=== PATIENT | female | born 1960 | race Caucasian/White ===

== ENCOUNTER → 2016-04-22 | Outpatient (CLI) | payer MEDICARE ==
[~2016-04-22] MED LIST: ASPI81TA4 PO; CELE20TA PO; DOCQ100C PO; EPIP0.3I2 IJ; FOLI1TAB2 PO; FOLI1TAB86 PO; GABA600T PO; HYDR-3716 PO; IMIT5SPR; LEVO125T3 PO; LORA10TA2 PO; MOME50SP; NIAC1TAB5 PO; OMEP40CA2 PO; PARO20TA2 PO; POLY33502 PO; PRAM0.123 PO; PRAV80TA2 PO; SUMA100T2 PO; TIZA4TAB3 PO; VICO5TAB16 PO; VITA100037 PO; VITA100072 PO; ZETI10TA2 PO; [UNRECOGNIZED DRUG - OTHER]
[2016-04-22 14:13] LABS: CONTROL LINE HCG INT CTR LINE PRESENT
[2016-04-22 14:28] LABS: FOLLICLE STIMULATING HORMONE 57.7 mIU/mL; LUTEINIZING HORMONE 29.3 mIU/mL
== END ==
LOC: M SMT 11:41
PROVIDERS: ATTEND Advanced Practice Midwife
DX: N95.0 Postmenopausal bleeding (principal)

== ENCOUNTER → 2016-04-24 | Outpatient (CLI) | payer MEDICARE ==
--- NOTE | 2016-04-25 05:06 | REP ---
Clinical: Postmenopausal bleeding . Technique: Transabdominal pelvic ultrasound followed by transvaginal examination for better evaluation of the endometrium and adnexa with color Doppler evaluation of the ovaries. Findings: Bladder is under distended and unremarkable and measures 3.1 x 2.7 x 0.9 cm (<5 ml) . Heterogeneous anteverted myomatous uterus measures 5.9 x 2.5 x 3.9 cm and includes posterior fibroid measuring 1.3 cm maximal diameter and anterior fibroid measuring 1 cm maximal diameter. The endometrial complex measures roughly 7.5 mm thickness but is difficult to completely evaluate due to uterine heterogeneity. No endometrial abnormalities are appreciated. The right ovary is normal in appearance and vascularity without evidence for torsion, and measures 2.4 x 1.3 x 1.9 cm ; R I = 0.68. Left ovary is not identified. No pelvic fluid or adnexal mass lesion . Impression: 1. heterogeneous anteverted uterus with two small intramural fibroids. The endometrial complex appears to measure up to 7.5 mm thickness but is difficult to completely evaluate due to surrounding heterogeneity. No discrete endometrial abnormality or fluid is appreciated. II. Normal right ovary; left ovary not visualized. Signed by Juan David Manzano MD 04/25/2016 04:57 A
== END ==
LOC: M SMT 12:49
PROVIDERS: ATTEND Advanced Practice Midwife
DX: N95.0 Postmenopausal bleeding (principal)

== ENCOUNTER → 2016-05-08 | Outpatient (REF) | payer MEDICARE, MEDICAID | LOC: M LAB REF 11:00 | PROVIDERS: ATTEND Advanced Practice Midwife | DX: N95.0 Postmenopausal bleeding (principal) ==

== ENCOUNTER → 2016-05-27 | Outpatient (CLI) | payer MEDICARE ==
[2016-05-27 09:44] LABS: BASO % 0.6 % (0.0-1.0); EOS # 0.1 K/mm3 (0.0-0.50); EOS % 2.2 % (0.0-3.0); LYMPH # 2.4 K/mm3 (1.5-4.5); LYMPH % 39.8 % (24.0-44.0); MEAN CORPUSCULAR HEMOGLOBIN 31.4 pg (27.0-33.0); MEAN CORPUSCULAR HGB CONC 33.9 g/dl (32.0-36.5); MEAN CORPUSCULAR VOLUME 92.8 fl (80.0-96.0); MONO # 0.2 K/mm3 (0.0-0.8); MONO % 3.7 % (0.0-5.0); NEUTROPHILS # 3.1 K/mm3 (1.8-7.7); NEUTROPHILS % 51.3 % (36.0-66.0); RED CELL DISTRIBUTION WIDTH 13.7 % (11.5-14.5); WHITE BLOOD COUNT 5.9 K/mm3 (4.0-10.0)
[2016-05-27 10:15] LABS: ALBUMIN 3.5 GM/DL (3.2-5.2); ALBUMIN/GLOBULIN RATIO 1.06 (1.00-1.93); ALKALINE PHOSPHATASE 94 U/L (45-117); ALT/SGPT 21 U/L (12-78); ANION GAP 8 MEQ/L (8-16); AST/SGOT 18 U/L (15-37); BILIRUBIN,TOTAL 0.7 MG/DL (0.2-1.0); BLOOD UREA NITROGEN 7 MG/DL (7-18); CALCIUM LEVEL 8.1 MG/DL (8.5-10.1); CARBON DIOXIDE LEVEL 29 MEQ/L (21-32); CHLORIDE LEVEL 105 MEQ/L (98-107); CHOLESTEROL LEVEL 83 MG/DL (<200); CREATININE FOR GFR 0.71 MG/DL (0.55-1.02); FERRITIN 59 NG/ML (8-252); FREE T4 0.95 NG/DL (0.76-1.46); GLOMERULAR FILTRATION RATE > 60.0 (>51); GLUCOSE, FASTING 101 MG/DL (70-105); POTASSIUM SERUM 3.6 MEQ/L (3.5-5.1); SODIUM LEVEL 142 MEQ/L (136-145); TOTAL PROTEIN 6.8 GM/DL (6.4-8.2); TRIGLYCERIDES LEVEL 69 MG/DL (<150)
[2016-05-27 16:47] LABS: VITAMIN B12 LEVEL 708 PG/ML (247-911)
[2016-05-27 16:48] LABS: FOLATE 20.7 NG/ML (>5.4)
[2016-05-29 00:07] LABS: CK TOTAL 96 U/L (24-173)
== END ==
LOC: M LAB 08:03
PROVIDERS: ATTEND Family Medicine
DX: E78.5 Hyperlipidemia, unspecified (principal); D50.9 Iron deficiency anemia, unspecified

== ENCOUNTER → 2016-06-13 | Outpatient (CLI) | payer MEDICARE ==
[~2016-06-13] VITALS: Ht 164.5 cm; Wt 92.5 kg
[~2016-06-13] MED LIST changes: +ASPI1TAB PO; +ATOR1TAB18 PO; +BACL10TA PO; +CLAR10CA3 PO; +ESTR625TA PO; +LIDOCAINE 2% INJ 100 MG/5 ML SDV (FOR ANES.) As Ordered ONE; +MONT10TA2 PO; +NIACCAP PO; +NS 1,000 ML IV SCH; +PRAM0.5T4 PO; +PROPOFOL 200 MG/20 ML VIAL As Ordered ONE; +SYNT112T2 PO; +VITA-112 PO; +VITA250L PO; +[UNRECOGNIZED DRUG - CODE]
--- NOTE | 2016-06-13 12:39 | ROOR ---
Patient Name: Donna Casillas Procedure Date: 06/13/2016 12:20 PM Date of : 1960 Age: 55 Room: [facility] Gender: Female Note Status: Finalized Procedure: Upper GI endoscopy Indications: Abnormal ultrasound of the GI tract, Mild fatty appearing liver and HSM on US, Has Thrombocytopenia, Former alcohol abuse. Possible portal htn, early cirrhosis/Eval for varices Providers: Elmo FERNANDES MD Referring MD: MELITA RENAE MD, Liliya Mireles MD Requesting Provider: Medicines: Monitored Anesthesia Care Complications: No immediate complications. Procedure: Pre-Anesthesia Assessment: - The heart rate, respiratory rate, oxygen saturations, blood pressure, adequacy of pulmonary ventilation, and response to care were monitored throughout the procedure. The Endoscope was introduced through the mouth, and advanced to the second part of duodenum. The upper GI endoscopy was accomplished without difficulty. The patient tolerated the procedure well. Findings: Minimal inflammation was found in the gastric antrum. Biopsies were taken with a cold forceps for Helicobacter pylori testing. The exam of the stomach was otherwise normal. The examined esophagus was normal. The examined duodenum was normal. Impression: - Very mild gastritis in antrum. Biopsied. - Stomach is otherwise normal. - Normal esophagus. - Normal examined duodenum. - There is no suggestion of gastric or esophageal varices. Recommendation: - Await results of CT as ordered/scheduled. - Return to my office in 1 month. Elmo Fernandes MD Elmo FENRANDES MD 06/13/2016 12:38:36 PM This report has been signed electronically. Number of Addenda: 0 Note Initiated On: 06/13/2016 12:20 PM Estimated Blood Loss: Estimated blood loss: none.
[2016-06-13 12:53] VITALS: BP 123/68
== END | disposition home or self-care (01) ==
LOC: M OPP 10:13
PROVIDERS: ATTEND Internal Medicine Gastroenterology
DX: R93.3 Abnormal findings on diagnostic imaging of other parts of digestive tract (principal); K29.70 Gastritis, unspecified, without bleeding; K76.0 Fatty (change of) liver, not elsewhere classified; D69.6 Thrombocytopenia, unspecified; K74.60 Unspecified cirrhosis of liver; F10.21 Alcohol dependence, in remission; R16.2 Hepatomegaly with splenomegaly, not elsewhere classified; E78.5 Hyperlipidemia, unspecified; R60.0 Localized edema; R01.1 Cardiac murmur, unspecified; E03.9 Hypothyroidism, unspecified; R12 Heartburn; K21.9 Gastro-esophageal reflux disease without esophagitis; M19.90 Unspecified osteoarthritis, unspecified site; M54.9 Dorsalgia, unspecified; F32.9 Major depressive disorder, single episode, unspecified; G43.909 Migraine, unspecified, not intractable, without status migrainosus; E88.01 Alpha-1-antitrypsin deficiency; Z78.0 Asymptomatic menopausal state; G47.30 Sleep apnea, unspecified; R06.83 Snoring; F17.210 Nicotine dependence, cigarettes, uncomplicated; Z88.8 Allergy status to other drugs, medicaments and biological substances; Z91.030 Bee allergy status; Z79.82 Long term (current) use of aspirin; G25.81 Restless legs syndrome; Z79.891 Long term (current) use of opiate analgesic; Z79.899 Other long term (current) drug therapy

== ENCOUNTER → 2016-06-18 | Outpatient (CLI) | payer MEDICARE ==
[~2016-06-18] MED LIST changes: +GASTROGRAFIN SOLUTION 30ML (Q9963) As Ordered ONE; +ISOVUE-370 76% 100ML VIAL (Q9967) As Ordered ONE; -LIDOCAINE 2% INJ 100 MG/5 ML SDV (FOR ANES.) As Ordered ONE; -NS 1,000 ML IV SCH; -PROPOFOL 200 MG/20 ML VIAL As Ordered ONE
--- NOTE | 2016-06-18 10:20 | REP ---
Clinical: Epigastric pain and heartburn. Technique: Axial contrast enhanced images from the lung bases to the pubic symphysis using oral and 100 ml Isovue 370 intravenous contrast material with precontrast and delayed images of the abdomen as well as coronal and sagittal re-formations. Findings: Lung bases are clear. Visualized heart and pericardium normal. Liver, spleen, pancreas, bilateral adrenal glands and kidneys are normal. The patient is status post cholecystectomy. The enteric system is without obstruction or acute inflammatory process. Normal terminal ileum and appendix identified in the right lower quadrant no hiatal hernia. Pelvis demonstrates normal bladder and age-appropriate uterus/adnexa. No ascites. No free air. No adenopathy. Vasculature appears normal. Musculoskeletal structures are intact. Impression: No acute intra-abdominal or pelvic pathology appreciated. No hiatal hernia by CT evaluation. Signed by Juan David Manzano MD 06/18/2016 10:11 A
== END ==
LOC: M RAD 07:20
PROVIDERS: ATTEND Internal Medicine Gastroenterology
DX: R12 Heartburn (principal)
CPT/HCPCS: 74178; Q9963; Q9967

== ENCOUNTER → 2016-07-08 | Day surgery (SDC) | payer MEDICARE ==
[~2016-07-08] VITALS: Ht 164.5 cm; Wt 46.3 kg
[~2016-07-08] MED LIST changes: +ACETAMINOPHEN 500 MG TAB PO ONE; -GASTROGRAFIN SOLUTION 30ML (Q9963) As Ordered ONE; -ISOVUE-370 76% 100ML VIAL (Q9967) As Ordered ONE; +KETOROLAC 60 MG/2 ML VIAL (J1885) As Ordered ONE; +LIDOCAINE 1% SDV INJ 30 ML VIAL As Ordered ONE; +LIDOCAINE 2% INJ 100 MG/5 ML SDV (FOR ANES.) As Ordered ONE; +LR 1,000 ML IV SCH; +MEPERIDINE INJ 25 MG/ML VIAL (J2175) IV PRN; +METOCLOPRAMIDE INJ 10MG/2ML VIAL (J2765) IV PRN; +MIDAZOLAM INJ 2 MG/2 ML VIAL (J2250) As Ordered ONE; +ONDANSETRON 4MG/2ML VIAL (J2405) As Ordered ONE; +PERCOCET 5MG/325MG TAB PO PRN; +PROPOFOL 200 MG/20 ML VIAL As Ordered ONE; +fentaNYL 100 MCG/2 ML INJECTION (J3010) IV PRN; +fentaNYL 250 MCG/5 ML INJECTION (J3010) As Ordered ONE
[2016-07-08 11:06] LABS: MEAN CORPUSCULAR HEMOGLOBIN 31.5 pg (27.0-33.0); MEAN CORPUSCULAR HGB CONC 33.8 g/dl (32.0-36.5); MEAN CORPUSCULAR VOLUME 93.2 fl (80.0-96.0); RED CELL DISTRIBUTION WIDTH 13.4 % (11.5-14.5)
[2016-07-08 14:30] VITALS: BP 118/55
--- NOTE | 2016-07-08 22:03 | RO ---
DATE OF PROCEDURE: 07/08/2016 PREPROCEDURE DIAGNOSIS: Postmenopausal bleeding. POSTPROCEDURE DIAGNOSIS: Postmenopausal bleeding. PROCEDURE: Hysteroscopy, dilation and curettage. SURGEON: Dr. Alon Rodgers CHILD NUTRITION MANAGER: ANESTHESIA: Local with sedation. ESTIMATED BLOOD LOSS: Minimal. URINE OUTPUT: 100 mL. FINDINGS: Normal appearing endometrial cavity. DESCRIPTION OF PROCEDURE: The patient was taken to the operating room where intravenous (IV) sedation was given. She was prepped and draped in a sterile fashion in the dorsal lithotomy position. A speculum was placed in the vagina and the cervix was injected circumferentially with 20 mL of 1% lidocaine. The anterior lip of the cervix was grasped with the tenaculum, cervix was dilated with tapered dilators. Diagnostic hysteroscope using normal saline as a distention medium was placed through the internal os. Visualization of the endometrial cavity revealed the findings noted above. Sharp curettage was performed. All instruments were removed. Sponge and instrument counts were correct. The patient went to the recovery room in stable condition.
== END | disposition home or self-care (01) ==
LOC: M SDC 10:41
PROVIDERS: ATTEND Specialist
DX: N95.0 Postmenopausal bleeding (principal); E78.5 Hyperlipidemia, unspecified; E03.9 Hypothyroidism, unspecified; K21.9 Gastro-esophageal reflux disease without esophagitis; F17.210 Nicotine dependence, cigarettes, uncomplicated; F32.9 Major depressive disorder, single episode, unspecified; Z91.030 Bee allergy status; Z79.82 Long term (current) use of aspirin; Z79.899 Other long term (current) drug therapy
CPT/HCPCS: 36415; 58558; 85027; 88305; J1885; J2250; J2405; J3010

== ENCOUNTER → 2016-08-29 | Outpatient (CLI) | payer MEDICARE ==
[~2016-08-29] MED LIST changes: -ACETAMINOPHEN 500 MG TAB PO ONE; -KETOROLAC 60 MG/2 ML VIAL (J1885) As Ordered ONE; -LIDOCAINE 1% SDV INJ 30 ML VIAL As Ordered ONE; -LIDOCAINE 2% INJ 100 MG/5 ML SDV (FOR ANES.) As Ordered ONE; -LR 1,000 ML IV SCH; -MEPERIDINE INJ 25 MG/ML VIAL (J2175) IV PRN; -METOCLOPRAMIDE INJ 10MG/2ML VIAL (J2765) IV PRN; -MIDAZOLAM INJ 2 MG/2 ML VIAL (J2250) As Ordered ONE; -ONDANSETRON 4MG/2ML VIAL (J2405) As Ordered ONE; -PERCOCET 5MG/325MG TAB PO PRN; -PROPOFOL 200 MG/20 ML VIAL As Ordered ONE; -fentaNYL 100 MCG/2 ML INJECTION (J3010) IV PRN; -fentaNYL 250 MCG/5 ML INJECTION (J3010) As Ordered ONE
== END ==
LOC: M WUC 14:04
PROVIDERS: ATTEND Family Medicine
DX: D69.6 Thrombocytopenia, unspecified (principal)

== ENCOUNTER → 2016-08-30 | Outpatient (REF) ==
[2016-08-30 15:36] LABS: COLLAGEN ADP 161 SECONDS (56-103)
== END ==
LOC: M LAB REF 15:01
PROVIDERS: ATTEND Family Medicine
DX: Z00.00 Encounter for general adult medical examination without abnormal findings (principal)

== ENCOUNTER → 2017-01-05 | Outpatient (CLI) | payer MEDICARE, MEDICAID ==
[~2017-01-05] MED LIST changes: -ATOR1TAB18 PO; +ATOR80TA59 PO; -BACL10TA PO; +BACL1TAB8 PO; -FOLI1TAB2 PO; +FOLI1TAB4 PO; -ZETI10TA2 PO; +ZETI10TA30 PO
--- NOTE | 2017-01-06 02:02 | REP ---
Clinical: Contusion. Technique: AP, lateral, bilateral oblique views of the right hand. Findings: Age-related degenerative changes are appreciated with very subtle joint space narrowing at the interphalangeal joints and increase sclerosis at the radial articular surface. No acute fracture dislocation. No subcutaneous emphysema or radiodense foreign body. Impression: Mild age-related degenerative changes. Signed by Juan David Manzano MD 01/06/2017 01:52 A
== END ==
LOC: M RAD 19:26
PROVIDERS: ATTEND Physician Assistant Medical
DX: S60.221A Contusion of right hand, initial encounter (principal); W18.30XA Fall on same level, unspecified, initial encounter; Y92.009 Unspecified place in unspecified non-institutional (private) residence as the place of occurrence of the external cause

== ENCOUNTER 2017-01-10 14:14 | Emergency (ER) | payer MEDICARE, MEDICAID ==
[~2017-01-10] VITALS: Ht 162.6 cm; Wt 92.2 kg
[2017-01-10] MEDS ORDERED: MORPHINE 4 MG/ML 1ML SYRINGE IV ONE (16:45)
--- NOTE | 2017-01-10 21:10 | REPUSA ---
HISTORY: PT C/O: NECK AND BACK PAIN BUE, AND BLE WEAKNESS AND PARESTHESIA OF SKIN, LOSS OF MOTILITY I N UE AND LE, BOWEL AND BLADDER INCONTINENCE, NKI, PRIORS ON PACS-KNS . TECHNIQUE: Multisequence, multiplanar MRI imaging of lumbosacral spine without contrast. FINDINGS: There is no evidence of fracture, destructive bony lesion, spondylolisthesis, or marrow abn ormality seen in the lumbosacral spine. Conus medullaris is normal and terminates at L1. 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 The L1/L2 level demonstrates degenerative spondylosis with desiccation of the disc and 1 mm posterior central disc bulging, without significant canal stenosis or nerve root compression seen. The L2/L3 level demonstrates degenerative spondylosis with desiccation of the disc and 2 mm posterior central disc bulging, without significant canal stenosis or nerve root compression seen. The L3/L4 level demonstrates degenerative spondylosis with desiccation of the disc and 1 mm posterior central disc bulging, without significant canal stenosis or nerve root compression seen. The L4/L5 level demonstrates degenerative spondylosis with desiccation of the disc and 3 mm posterior central disc bulging, without significant canal stenosis or nerve root compression seen. The L5/S1 level demonstrates degenerative spondylosis with desiccation of the disc and 1 mm posterior central disc bulging, without significant canal stenosis or nerve root compression seen. IMPRESSION: Multilevel mild degenerative disc disease with 1-3 mm disc bulging, greatest at L4, witho ut evidence of canal stenosis, foramina stenosis, or nerve root compression seen throughout the lumbo sacral spine.
--- NOTE | 2017-01-10 21:20 | REPUSA ---
HISTORY: PT C/O: NECK AND BACK PAIN BUE, AND BLE WEAKNESS AND PARESTHESIA OF SKIN, LOSS OF MOTILITY IN UE AND LE, BOWEL AND BLADDER INCONTINENCE, NKI, PRIORS ON PACS-KNS . TECHNIQUE: Multisequence, multiplanar MRI imaging of cervical spine without contrast. FINDINGS: There is no evidence of fracture, destructive bony lesion, spondylolisthesis, or marrow abn ormality seen in the cervical spine. Foramen magnum region is normal with no evidence of Chiari malfo rmation. Cervical spinal cord is normal with no intra-axial mass, syrinx, cord compression, extra-axial mass, or cord edema seen. The C1/C2 level demonstrates no evidence of atlantoaxial subluxation or canal stenosis. The C2/C3 level demonstrates no evidence of significant degenerative disc disease, disc bulging or he rniation, significant spurring, canal stenosis, foraminal stenosis, or nerve or cord impingement or c ompression seen. The C3/C4 level demonstrates no evidence of significant degenerative disc disease, disc bulging or he rniation, significant spurring, canal stenosis, foraminal stenosis, or nerve or cord impingement or c ompression seen. The C4/C5 level demonstrates a 2 mm posterior lateral disc bulge into the left neural foramen, result ing in left foraminal stenosis with possible impingement upon the exiting left C4 nerve root, best se en on the axial sequence image 18. The C5/C6 level demonstrates no evidence of significant degenerative disc disease, disc bulging or he rniation, significant spurring, canal stenosis, foraminal stenosis, or nerve or cord impingement or c ompression seen. The C6/C7 level demonstrates degenerative spondylosis with 2 mm posterior lateral disc protrusion int o the left neural foramen with possible impingement upon the exiting left C7 nerve root. The C7/T1 level demonstrates no evidence of significant degenerative disc disease, disc bulging or he rniation, significant spurring, canal stenosis, foraminal stenosis, or nerve or cord impingement or c ompression seen. IMPRESSION: 1. Degenerative spondylosis with posterior lateral disc protrusions at C4/C5 with possib le impingement upon the exiting left C5 nerve root, and at C6/C7 with possible impingement upon the e xiting left C7 nerve root. 2. No evidence of canal stenosis, or cervical spinal cord compression. Clinical correlation is suggested in order to localize and determine neurological significance of pos sible nerve root impingement in the multiple areas of foraminal stenoses.
[2017-01-10 21:54] VITALS: BP 115/65
== END 2017-01-10 22:14 | disposition home or self-care (01) ==
LOC: EDBD 14:14 → M ED 14:14
DX: M50.30 Other cervical disc degeneration, unspecified cervical region (principal); J45.909 Unspecified asthma, uncomplicated; F32.9 Major depressive disorder, single episode, unspecified; Z88.1 Allergy status to other antibiotic agents; Z88.8 Allergy status to other drugs, medicaments and biological substances; Z91.030 Bee allergy status; Z79.82 Long term (current) use of aspirin; Z79.899 Other long term (current) drug therapy
CPT/HCPCS: 72141; 72148; 96374; 96375; 99284; J3360

== ENCOUNTER → 2017-02-27 | Outpatient (CLI) | payer MEDICARE, MEDICAID ==
[2017-02-27 09:51] LABS: BASO % 0.5 % (0.0-1.0); EOS # 0.1 10^3/uL (0.0-0.50); EOS % 1.7 % (0.0-3.0); IMMATURE GRANULOCYTE % 0.2 % (0-0); LYMPH # 2.8 10^3/uL (1.5-4.5); LYMPH % 46.9 % (24.0-44.0); MEAN CORPUSCULAR HEMOGLOBIN 31.4 pg (27.0-33.0); MEAN CORPUSCULAR HGB CONC 33.4 g/dl (32.0-36.5); MEAN CORPUSCULAR VOLUME 93.8 fl (80.0-96.0); MONO # 0.4 10^3/uL (0.0-0.8); NEUTROPHILS # 2.6 10^3/uL (1.8-7.7); NEUTROPHILS % 44.7 % (36.0-66.0); RED CELL DISTRIBUTION WIDTH 12.6 % (11.5-14.5); WHITE BLOOD COUNT 5.9 10^3/uL (4.0-10.0)
[2017-02-27 09:56] LABS: MICROSCOPIC INDICATED? MAN YES (NO)
[2017-02-27 09:57] LABS: PLATELET COUNT, AUTOMATED 72 10^3/uL (150-450)
[2017-02-27 09:58] LABS: BACTERIA, URINE SMALL AMOUNT; HYALINE CAST, URINE NONE SEEN /lpf (0-1); MICROSCOPIC EXAM PERFORMED; RBC, URINE 0-1 /hpf (0-3); SQUAMOUS EPITHELIAL CELL URINE MOD AMOUNT /hpf (SMALL AMT)
[2017-02-27 10:00] LABS: IMMATURE PLATELET FRACTION % 7.8 % (0.0-9.6)
[2017-02-27 10:21] LABS: ALBUMIN 3.7 GM/DL (3.2-5.2); ALBUMIN/GLOBULIN RATIO 1.19 (1.00-1.93); ALKALINE PHOSPHATASE 79 U/L (45-117); ALT/SGPT 25 U/L (12-78); ANION GAP 7 MEQ/L (8-16); AST/SGOT 18 U/L (7-37); BILIRUBIN,TOTAL 0.5 MG/DL (0.2-1.0); BLOOD UREA NITROGEN 7 MG/DL (7-18); CALCIUM LEVEL 8.3 MG/DL (8.5-10.1); CARBON DIOXIDE LEVEL 29 MEQ/L (21-32); CHLORIDE LEVEL 109 MEQ/L (98-107); CHOLESTEROL LEVEL 113 MG/DL (<200); FREE T4 1.05 NG/DL (0.76-1.46); GLOMERULAR FILTRATION RATE > 60.0 (>51); GLUCOSE, FASTING 100 MG/DL (70-105); POTASSIUM SERUM 3.8 MEQ/L (3.5-5.1); SODIUM LEVEL 145 MEQ/L (136-145); TOTAL PROTEIN 6.8 GM/DL (6.4-8.2); TRIGLYCERIDES LEVEL 68 MG/DL (<150)
[2017-02-27 10:57] LABS: VITAMIN B12 LEVEL 1515 PG/ML (247-911)
[2017-02-27 10:58] LABS: FOLATE 22.4 NG/ML (>5.4)
== END ==
LOC: M LAB 08:33
PROVIDERS: ATTEND Family Medicine
DX: Z00.00 Encounter for general adult medical examination without abnormal findings (principal); E03.9 Hypothyroidism, unspecified; G89.4 Chronic pain syndrome; F33.9 Major depressive disorder, recurrent, unspecified; D52.9 Folate deficiency anemia, unspecified; G25.81 Restless legs syndrome; R73.01 Impaired fasting glucose

== ENCOUNTER 2017-04-30 12:38 | Emergency (ER) | payer MEDICARE, MEDICAID ==
[2017-04-30] MEDS: NS 500 ML IV (14:15)
[2017-04-30 14:24] LABS: BASO % 0.5 % (0.0-1.0); EOS # 0.1 10^3/uL (0.0-0.50); EOS % 1.1 % (0.0-3.0); HEMATOCRIT 40.8 % (36.0-47.0); HEMOGLOBIN 13.6 g/dl (12.0-16.0); IMMATURE GRANULOCYTE % 0.2 % (0-0); LYMPH # 2.7 10^3/uL (1.5-4.5); LYMPH % 41.2 % (24.0-44.0); MEAN CORPUSCULAR HEMOGLOBIN 31.1 pg (27.0-33.0); MEAN CORPUSCULAR HGB CONC 33.3 g/dl (32.0-36.5); MEAN CORPUSCULAR VOLUME 93.4 fl (80.0-96.0); MONO # 0.4 10^3/uL (0.0-0.8); MONO % 6.5 % (0.0-5.0); NEUTROPHILS # 3.3 10^3/uL (1.8-7.7); NEUTROPHILS % 50.5 % (36.0-66.0); RED BLOOD COUNT 4.37 10^6/uL (4.00-5.40); RED CELL DISTRIBUTION WIDTH 13.1 % (11.5-14.5); WHITE BLOOD COUNT 6.5 10^3/uL (4.0-10.0)
[2017-04-30 14:35] LABS: PLATELET COUNT, AUTOMATED 85 10^3/uL (150-450)
[2017-04-30 14:36] LABS: INR 0.97
[2017-04-30 14:37] LABS: PARTIAL THROMBOPLASTIN TIME 28.4 SECONDS (26.8-37.9)
[2017-04-30] MEDS ORDERED: ISOVUE-370 76% 100ML VIAL (Q9967) As Ordered (14:42)
[2017-04-30 14:44] LABS: ALBUMIN 3.8 GM/DL (3.2-5.2); ALBUMIN/GLOBULIN RATIO 1.09 (1.00-1.93); ALKALINE PHOSPHATASE 81 U/L (45-117); ALT/SGPT 23 U/L (12-78); ANION GAP 4 MEQ/L (8-16); AST/SGOT 15 U/L (7-37); BILIRUBIN,DIRECT 0.1 MG/DL (0.0-0.2); BILIRUBIN,TOTAL 0.4 MG/DL (0.2-1.0); BLOOD UREA NITROGEN 9 MG/DL (7-18); CALCIUM LEVEL 8.5 MG/DL (8.5-10.1); CARBON DIOXIDE LEVEL 31 MEQ/L (21-32); CHLORIDE LEVEL 107 MEQ/L (98-107); CREATININE FOR GFR 0.73 MG/DL (0.55-1.30); GLOMERULAR FILTRATION RATE > 60.0 (>51); GLUCOSE, FASTING 86 MG/DL (70-100); SODIUM LEVEL 142 MEQ/L (136-145); TOTAL PROTEIN 7.3 GM/DL (6.4-8.2)
== END 2017-04-30 15:57 | disposition home or self-care (01) ==
LOC: M ED 12:38
DX: K60.0 Acute anal fissure (principal); K21.9 Gastro-esophageal reflux disease without esophagitis; G89.29 Other chronic pain; M54.5 Low back pain; Z87.442 Personal history of urinary calculi; G43.909 Migraine, unspecified, not intractable, without status migrainosus; E07.9 Disorder of thyroid, unspecified; J30.2 Other seasonal allergic rhinitis; Z79.82 Long term (current) use of aspirin; Z79.899 Other long term (current) drug therapy; Z91.030 Bee allergy status; Z88.8 Allergy status to other drugs, medicaments and biological substances
CPT/HCPCS: Q9967

== ENCOUNTER → 2017-06-13 | Outpatient (REF) | payer MEDICARE, MEDICAID ==
[2017-06-13 14:30] LABS: REASON FOR REVIEW PLATELET MORPHOLOGY; SLIDE REVIEW Report; SOURCE PERIPHERAL SMEAR
== END ==
LOC: M LAB REF 13:24
DX: D69.6 Thrombocytopenia, unspecified (principal)

== ENCOUNTER → 2017-06-16 | Outpatient (CLI) | payer MEDICARE, MEDICAID ==
[~2017-06-16] MED LIST changes: -ASPI1TAB PO; -ASPI81TA4 PO; -ATOR80TA59 PO; -BACL1TAB8 PO; -CELE20TA PO; -CLAR10CA3 PO; -DOCQ100C PO; -EPIP0.3I2 IJ; -ESTR625TA PO; -FOLI1TAB4 PO; -FOLI1TAB86 PO; -GABA600T PO; -HYDR-3716 PO; -IMIT5SPR; +ISOVUE-370 76% 100ML VIAL (Q9967) As Ordered; -LEVO125T3 PO; -LORA10TA2 PO; -MOME50SP; -MONT10TA2 PO; -NIAC1TAB5 PO; -NIACCAP PO; -OMEP40CA2 PO; -PARO20TA2 PO; -POLY33502 PO; -PRAM0.123 PO; -PRAM0.5T4 PO; -PRAV80TA2 PO; -SUMA100T2 PO; -SYNT112T2 PO; -TIZA4TAB3 PO; -VICO5TAB16 PO; -VITA-112 PO; -VITA100037 PO; -VITA100072 PO; -VITA250L PO; -ZETI10TA30 PO; -[UNRECOGNIZED DRUG - CODE]; -[UNRECOGNIZED DRUG - OTHER]
== END ==
LOC: M RAD 13:24
DX: R16.1 Splenomegaly, not elsewhere classified (principal); E04.2 Nontoxic multinodular goiter; D69.6 Thrombocytopenia, unspecified
CPT/HCPCS: Q9967

== ENCOUNTER → 2017-07-28 | Outpatient (REF) | payer MEDICARE, MEDICAID | LOC: M LAB REF 19:12 | DX: D69.6 Thrombocytopenia, unspecified (principal) | CPT/HCPCS: 88300 ==

== ENCOUNTER → 2017-08-25 | Outpatient (CLI) | payer MEDICARE, MEDICAID ==
[2017-08-25 09:14] LABS: APPEARANCE, URINE CLOUDY (CLEAR); BACTERIA, URINE AUTO NEGATIVE (NEGATIVE); BILIRUBIN, URINE AUTO NEGATIVE (NEGATIVE); BLOOD, URINE BLOOD NEGATIVE (NEGATIVE); COLOR, URINE YELLOW (YELLOW); GLUCOSE, URINE (UA) AUTO NEGATIVE (NEGATIVE); KETONE, URINE AUTO NEGATIVE (NEGATIVE); LEUKOCYTE ESTERASE, URINE AUTO NEGATIVE (NEGATIVE); MUCUS, URINE SMALL (NEGATIVE); NITRITE, URINE AUTO NEGATIVE (NEGATIVE); PROTEIN, URINE AUTO NEGATIVE (NEGATIVE); RBC, URINE AUTO 1 /HPF (0-3); SPECIFIC GRAVITY URINE AUTO 1.023 (1.002-1.035); SQUAMOUS EPITHELIAL CELL UR AU 26 /HPF (0-6); WBC, URINE AUTO 2 /HPF (0-3)
[2017-08-25 09:24] LABS: BASO % 0.7 % (0.0-1.0); EOS # 0.1 10^3/uL (0.0-0.50); HEMATOCRIT 39.1 % (36.0-47.0); HEMOGLOBIN 13.3 g/dl (12.0-15.5); IMMATURE GRANULOCYTE % 1.2 % (0-3.0); LYMPH # 2.4 10^3/uL (1.5-4.5); LYMPH % 40.9 % (24.0-44.0); MEAN CORPUSCULAR VOLUME 91.1 fl (80.0-96.0); MONO # 0.5 10^3/uL (0.0-0.8); MONO % 8.6 % (0.0-5.0); NEUTROPHILS # 2.8 10^3/uL (1.8-7.7); NEUTROPHILS % 46.6 % (36.0-66.0); RED BLOOD COUNT 4.29 10^6/uL (4.00-5.40); WHITE BLOOD COUNT 5.9 10^3/uL (4.0-10.0)
[2017-08-25 09:35] LABS: COLLAGEN EPINEPHRINE 166 SECONDS (74-162)
[2017-08-25 09:40] LABS: ALBUMIN 3.5 GM/DL (3.2-5.2); ALBUMIN/GLOBULIN RATIO 1.06 (1.00-1.93); ALKALINE PHOSPHATASE 80 U/L (45-117); ALT/SGPT 20 U/L (12-78); ANION GAP 4 MEQ/L (8-16); AST/SGOT 16 U/L (7-37); BILIRUBIN,TOTAL 0.3 MG/DL (0.2-1.0); BLOOD UREA NITROGEN 10 MG/DL (7-18); C REACTIVE PROTEIN QUANTITATIV 0.73 MG/DL (0.00-0.30); CALCIUM LEVEL 8.2 MG/DL (8.5-10.1); CARBON DIOXIDE LEVEL 27 MEQ/L (21-32); CHLORIDE LEVEL 113 MEQ/L (98-107); CHOLESTEROL LEVEL 202 MG/DL (<200); CHOLESTEROL RISK RATIO 5.771 (<5); CPK CREATINE PHOSPHOKINASE 87 U/L (26-192); FERRITIN 49 NG/ML (8-252); FREE T4 1.03 NG/DL (0.76-1.46); GLOMERULAR FILTRATION RATE > 60.0 (>51); GLUCOSE, FASTING 88 MG/DL (70-100); HDL CHOLESTEROL 35 MG/DL (>40); IRON (FE) 61 UG/DL (50-170); NON-HDL-C 167 MG/DL; PERCENT SATURATION 19.8 % (13.2-45.0); PLATELET COUNT, AUTOMATED 106 10^3/uL (150-450); POTASSIUM SERUM 3.8 MEQ/L (3.5-5.1); SODIUM LEVEL 144 MEQ/L (136-145); THYROID STIMULATING HORMONE 0.675 uIU/ML (0.358-3.740); TOTAL IRON BINDING CAPACITY 308 UG/DL (250-450); TOTAL PROTEIN 6.8 GM/DL (6.4-8.2); TRIGLYCERIDES LEVEL 120 MG/DL (<150)
[2017-08-25 09:59] LABS: COLLAGEN ADP 131 SECONDS (56-103)
[2017-08-25 10:36] LABS: ERYTHROCYTE SEDIMENTATION RATE 27 mm/hr (0-30)
[2017-08-25 10:40] LABS: FOLATE > 24.0 NG/ML; VITAMIN B12 LEVEL 872 PG/ML
[2017-09-03 00:07] LABS: AMPHETAMINE SCREEN, URINE Negative ng/mL (Cutoff=1000); BARBITURATES SCREEN, URINE Negative ng/mL (Cutoff=200); BENZODIAZEPINES, URINE SCREEN Negative ng/mL (Cutoff=200); CANNABINOID SCREEN, URINE See Final Results ng/mL (Cutoff=20); CANNABINOID, URINE Positive (Cutoff=20); CARBOXY THC (GC/MS) 89 ng/mL (Cutoff=10); COCAINE SCREEN, URINE Negative ng/mL (Cutoff=300); CODEINE, URINE Negative (Cutoff=100); CREATININE, URINE 210.2 mg/dL (20.0-300.0); FENTANYL URINE SCREEN Negative pg/mL (Cutoff=2000); HYDROCODONE CONFIRM, URINE 2450 ng/mL (Cutoff=100); HYDROCODONE, URINE Positive (.); HYDROMORPHONE CONFIRM, URINE 188 ng/mL (Cutoff=100); HYDROMORPHONE, URINE Positive (.); METHADONE, URINE SCREEN Negative ng/mL (Cutoff=300); MORPHINE, URINE Negative (Cutoff=100); OPIATE SCREEN, URINE See Final Results ng/mL (Cutoff=300); OPIATES, URINE Positive ng/mL (Cutoff=300); OXYCODONE, SCREEN, URINE Negative ng/mL (Cutoff=100); PCP SCREEN, URINE Negative ng/mL (Cutoff=25); SPECIFIC GRAVITY, URINE 1.023 (.); pH, URINE 5.6 (4.5-8.9)
== END ==
LOC: M LAB 08:35
DX: G89.4 Chronic pain syndrome (principal); F33.9 Major depressive disorder, recurrent, unspecified; G25.81 Restless legs syndrome; E03.9 Hypothyroidism, unspecified; M50.30 Other cervical disc degeneration, unspecified cervical region; E78.5 Hyperlipidemia, unspecified; K21.9 Gastro-esophageal reflux disease without esophagitis; D69.6 Thrombocytopenia, unspecified
CPT/HCPCS: 82550

== ENCOUNTER → 2017-09-05 | Outpatient (CLI) | payer MEDICARE, MEDICAID ==
[2017-09-05 07:14] LABS: HEMATOCRIT 40.8 % (36.0-47.0); HEMOGLOBIN 13.7 g/dl (12.0-15.5); MEAN CORPUSCULAR HEMOGLOBIN 30.7 pg (27.0-33.0); MEAN CORPUSCULAR HGB CONC 33.6 g/dl (32.0-36.5); MEAN CORPUSCULAR VOLUME 91.5 fl (80.0-96.0); PLATELET COUNT, AUTOMATED 101 10^3/uL (150-450); RED BLOOD COUNT 4.46 10^6/uL (4.00-5.40); RED CELL DISTRIBUTION WIDTH 12.8 % (11.5-14.5)
== END ==
LOC: M LAB 06:45
DX: D69.6 Thrombocytopenia, unspecified (principal)
CPT/HCPCS: 85027

== ENCOUNTER → 2017-12-05 | Outpatient (CLI) | payer MEDICARE ==
[2017-12-05 10:13] LABS: BASO % 0.4 % (0.0-1.0); EOS # 0.1 10^3/uL (0.0-0.50); EOS % 1.4 % (0.0-3.0); HEMOGLOBIN 14.1 g/dl (12.0-15.5); IMMATURE GRANULOCYTE % 0.3 % (0-3.0); LYMPH # 2.4 10^3/uL (1.5-4.5); LYMPH % 33.6 % (24.0-44.0); MEAN CORPUSCULAR HEMOGLOBIN 31.3 pg (27.0-33.0); MEAN CORPUSCULAR HGB CONC 33.6 g/dl (32.0-36.5); MEAN CORPUSCULAR VOLUME 93.3 fl (80.0-96.0); MONO # 0.5 10^3/uL (0.0-0.8); MONO % 7.1 % (0.0-5.0); NEUTROPHILS % 57.2 % (36.0-66.0); RED CELL DISTRIBUTION WIDTH 13.2 % (11.5-14.5); WHITE BLOOD COUNT 7.1 10^3/uL (4.0-10.0)
[2017-12-05 10:14] LABS: PLATELET COUNT, AUTOMATED 83 10^3/uL (150-450)
[2017-12-05 10:16] LABS: IMMATURE PLATELET FRACTION % 7.8 % (0.0-9.6)
[2017-12-05 10:18] LABS: APPEARANCE, URINE CLOUDY (CLEAR); BACTERIA, URINE AUTO 1+ (NEGATIVE); BILIRUBIN, URINE AUTO NEGATIVE (NEGATIVE); BLOOD, URINE BLOOD NEGATIVE (NEGATIVE); COLOR, URINE YELLOW (YELLOW); GLUCOSE, URINE (UA) AUTO NEGATIVE (NEGATIVE); KETONE, URINE AUTO NEGATIVE (NEGATIVE); LEUKOCYTE ESTERASE, URINE AUTO 2+ (NEGATIVE); MUCUS, URINE SMALL (NEGATIVE); NITRITE, URINE AUTO NEGATIVE (NEGATIVE); PROTEIN, URINE AUTO NEGATIVE (NEGATIVE); RBC, URINE AUTO 12 /HPF (0-3); SPECIFIC GRAVITY URINE AUTO 1.019 (1.002-1.035); SQUAMOUS EPITHELIAL CELL UR AU 25 /HPF (0-6); UROBILINOGEN, URINE AUTO 0.2 mg/dL (0.0-2.0); WBC, URINE AUTO 20 /HPF (0-3)
[2017-12-05 10:32] LABS: COLLAGEN EPINEPHRINE 173 SECONDS (74-162)
[2017-12-05 10:36] LABS: ERYTHROCYTE SEDIMENTATION RATE 20 mm/hr (0-30)
[2017-12-05 10:43] LABS: ALBUMIN 3.9 GM/DL (3.2-5.2); ALBUMIN/GLOBULIN RATIO 1.11 (1.00-1.93); ALKALINE PHOSPHATASE 110 U/L (45-117); ALT/SGPT 144 U/L (12-78); ANION GAP 6 MEQ/L (8-16); AST/SGOT 154 U/L (7-37); BILIRUBIN,TOTAL 0.8 MG/DL (0.2-1.0); BLOOD UREA NITROGEN 13 MG/DL (7-18); C REACTIVE PROTEIN QUANTITATIV 0.54 MG/DL (0.00-0.30); CALCIUM LEVEL 8.8 MG/DL (8.5-10.1); CARBON DIOXIDE LEVEL 28 MEQ/L (21-32); CHLORIDE LEVEL 107 MEQ/L (98-107); CHOLESTEROL LEVEL 149 MG/DL (<200); CHOLESTEROL RISK RATIO 3.386 (<5); CPK CREATINE PHOSPHOKINASE 74 U/L (26-192); CREATININE FOR GFR 0.73 MG/DL (0.55-1.30); FERRITIN 198 NG/ML (8-252); FREE T4 1.15 NG/DL (0.76-1.46); GLOMERULAR FILTRATION RATE > 60.0 (>51); GLUCOSE, FASTING 98 MG/DL (70-100); HDL CHOLESTEROL 44 MG/DL (>40); IRON (FE) 113 UG/DL (50-170); LDL CHOLESTEROL 74 MG/DL (<100); NON-HDL-C 105 MG/DL; PERCENT SATURATION 35.5 % (13.2-45.0); POTASSIUM SERUM 3.9 MEQ/L (3.5-5.1); SODIUM LEVEL 141 MEQ/L (136-145); THYROID STIMULATING HORMONE 0.228 uIU/ML (0.358-3.740); TOTAL IRON BINDING CAPACITY 318 UG/DL (250-450); TOTAL PROTEIN 7.4 GM/DL (6.4-8.2); TRIGLYCERIDES LEVEL 156 MG/DL (<150)
[2017-12-05 11:01] LABS: COLLAGEN ADP 139 SECONDS (56-103)
[2017-12-05 13:28] LABS: FOLATE > 24.0 NG/ML
[2017-12-10 14:17] LABS: AMPHETAMINE SCREEN, URINE Negative ng/mL (Cutoff=1000); BARBITURATES SCREEN, URINE Negative ng/mL (Cutoff=200); BENZODIAZEPINES, URINE SCREEN Negative ng/mL (Cutoff=200); CANNABINOID SCREEN, URINE Negative ng/mL (Cutoff=20); COCAINE SCREEN, URINE Negative ng/mL (Cutoff=300); CODEINE, URINE Negative (Cutoff=100); CREATININE, URINE 247.1 mg/dL (20.0-300.0); FENTANYL URINE SCREEN Negative pg/mL (Cutoff=2000); HYDROCODONE CONFIRM, URINE 1754 ng/mL (Cutoff=100); HYDROCODONE, URINE Positive (.); HYDROMORPHONE CONFIRM, URINE 237 ng/mL (Cutoff=100); HYDROMORPHONE, URINE Positive (.); METHADONE, URINE SCREEN Negative ng/mL (Cutoff=300); MORPHINE, URINE Negative (Cutoff=100); OPIATE SCREEN, URINE See Final Results ng/mL (Cutoff=300); OPIATES, URINE Positive ng/mL (Cutoff=300); OXYCODONE, SCREEN, URINE Negative ng/mL (Cutoff=100); PCP SCREEN, URINE Negative ng/mL (Cutoff=25); pH, URINE 5.3 (4.5-8.9)
== END ==
LOC: M LAB 09:23
DX: E03.9 Hypothyroidism, unspecified (principal); M50.30 Other cervical disc degeneration, unspecified cervical region; G89.4 Chronic pain syndrome; F33.9 Major depressive disorder, recurrent, unspecified; G25.81 Restless legs syndrome; Z79.899 Other long term (current) drug therapy; D69.6 Thrombocytopenia, unspecified; K21.9 Gastro-esophageal reflux disease without esophagitis; E78.5 Hyperlipidemia, unspecified
CPT/HCPCS: 82550

== ENCOUNTER → 2018-03-13 | Outpatient (CLI) | payer MEDICARE ==
[~2018-03-13] MED LIST changes: +ASPI1TAB PO; +ASPI81TA4 PO; +ATOR80TA59 PO; +BACL1TAB8 PO; +CELE20TA PO; +CELE40TA PO; +CLAR10CA3 PO; +DOCQ100C PO; +EPIP0.3I2 IJ; +ESTR625TA PO; +FOLI1TAB11 PO; +FOLI1TAB86 PO; +GABA600T4 PO; +HYDR-3716 PO; +IMIT5SPR; -ISOVUE-370 76% 100ML VIAL (Q9967) As Ordered; +LEVO125T3 PO; +LORA10TA2 PO; +MOME50SP; +MONT10TA2 PO; +NIAC1TAB5 PO; +NIACCAP PO; +OMEP40CA2 PO; +PARO20TA2 PO; +POLY1POW38 PO; +PRAM0.123 PO; +PRAM0.5T7 PO; +PRAV80TA2 PO; +SUMA100T2 PO; +SUPE5000 PO; +SYNT112T2 PO; +TIZA4TAB3 PO; +VICO5TAB16 PO; +VITA-112 PO; +VITA100037 PO; +VITA100072 PO; +VITA250L PO; +ZETI10TA30 PO; +[UNRECOGNIZED DRUG - CODE]; +[UNRECOGNIZED DRUG - OTHER]
[2018-03-13 10:38] LABS: FREE T4 0.85 NG/DL (0.76-1.46); THYROID STIMULATING HORMONE 3.39 uIU/ML (0.358-3.740)
== END ==
LOC: M LAB 09:31
PROVIDERS: ATTEND Family Medicine
DX: E03.9 Hypothyroidism, unspecified (principal)

== ENCOUNTER → 2018-03-31 | Outpatient (CLI) | payer MEDICARE ==
[~2018-03-31] MED LIST changes: +CALC-196 PO; +FERR325T3 PO; +LEVO100T5 PO; +VITA100067 PO
[2018-03-31 11:42] LABS: APPEARANCE, URINE HAZY (CLEAR); BACTERIA, URINE AUTO NEGATIVE (NEGATIVE); BILIRUBIN, URINE AUTO NEGATIVE (NEGATIVE); BLOOD, URINE BLOOD NEGATIVE (NEGATIVE); COLOR, URINE YELLOW (YELLOW); GLUCOSE, URINE (UA) AUTO NEGATIVE (NEGATIVE); KETONE, URINE AUTO NEGATIVE (NEGATIVE); LEUKOCYTE ESTERASE, URINE AUTO NEGATIVE (NEGATIVE); MUCUS, URINE SMALL (NEGATIVE); NITRITE, URINE AUTO NEGATIVE (NEGATIVE); PROTEIN, URINE AUTO NEGATIVE (NEGATIVE); RBC, URINE AUTO 1 /HPF (0-3); SPECIFIC GRAVITY URINE AUTO 1.015 (1.002-1.035); SQUAMOUS EPITHELIAL CELL UR AU 11 /HPF (0-6); WBC, URINE AUTO 1 /HPF (0-3)
[2018-03-31 11:43] LABS: BASO % 0.4 % (0.0-1.0); EOS # 0.1 10^3/uL (0.0-0.50); EOS % 1.7 % (0.0-3.0); HEMOGLOBIN 13.9 g/dl (12.0-15.5); LYMPH # 1.7 10^3/uL (1.5-4.5); LYMPH % 31.7 % (24.0-44.0); MEAN CORPUSCULAR HEMOGLOBIN 31.5 pg (27.0-33.0); MEAN CORPUSCULAR HGB CONC 33.1 g/dl (32.0-36.5); MEAN CORPUSCULAR VOLUME 95.2 fl (80.0-96.0); MONO # 0.3 10^3/uL (0.0-0.8); MONO % 6.1 % (0.0-5.0); NEUTROPHILS # 3.3 10^3/uL (1.8-7.7); NEUTROPHILS % 59.7 % (36.0-66.0); RED BLOOD COUNT 4.41 10^6/uL (4.00-5.40); WHITE BLOOD COUNT 5.4 10^3/uL (4.0-10.0)
[2018-03-31 12:11] LABS: PLATELET COUNT, AUTOMATED 77 10^3/uL (150-450)
[2018-03-31 12:16] LABS: ERYTHROCYTE SEDIMENTATION RATE 16 mm/hr (0-30)
[2018-03-31 12:25] LABS: ALBUMIN 3.4 GM/DL (3.2-5.2); ALT/SGPT 240 U/L (12-78); BILIRUBIN,TOTAL 0.5 MG/DL (0.2-1.0); BLOOD UREA NITROGEN 8 MG/DL (7-18); C REACTIVE PROTEIN QUANTITATIV 0.58 MG/DL (0.00-0.30); CALCIUM LEVEL 8.2 MG/DL (8.5-10.1); CARBON DIOXIDE LEVEL 30 MEQ/L (21-32); CHLORIDE LEVEL 109 MEQ/L (98-107); CHOLESTEROL LEVEL 108 MG/DL (<200); CPK CREATINE PHOSPHOKINASE 102 U/L (26-192); FERRITIN 397 NG/ML (8-252); FOLATE 18.8 NG/ML (>5.4); FREE T4 0.84 NG/DL (0.76-1.46); GLOMERULAR FILTRATION RATE > 60.0 (>51); GLUCOSE, FASTING 88 MG/DL (70-100); HDL CHOLESTEROL 45 MG/DL (>40); IRON (FE) 54 UG/DL (50-170); LDL CHOLESTEROL 48 MG/DL (<100); NON-HDL-C 63 MG/DL; PERCENT SATURATION 18.8 % (13.2-45.0); POTASSIUM SERUM 4.1 MEQ/L (3.5-5.1); SODIUM LEVEL 145 MEQ/L (136-145); TOTAL IRON BINDING CAPACITY 287 UG/DL (250-450); TOTAL PROTEIN 6.7 GM/DL (6.4-8.2); TRIGLYCERIDES LEVEL 76 MG/DL (<150); VITAMIN B12 LEVEL 1639 PG/ML (247-911)
[2018-03-31 14:23] LABS: COLLAGEN ADP 117 SECONDS (56-103); COLLAGEN EPINEPHRINE > 300 SECONDS (74-162)
[2018-04-04 08:06] LABS: CANNABINOID, URINE Positive (Cutoff=20); CARBOXY THC (GC/MS) 57 ng/mL (Cutoff=10); CODEINE, URINE Negative (Cutoff=100); CREATININE, URINE 138.1 mg/dL (20.0-300.0); HYDROCODONE CONFIRM, URINE 463 ng/mL (Cutoff=100); HYDROCODONE, URINE Positive (.); HYDROMORPHONE CONFIRM, URINE 165 ng/mL (Cutoff=100); HYDROMORPHONE, URINE Positive (.); MORPHINE, URINE Negative (Cutoff=100); OPIATES, URINE Positive ng/mL (Cutoff=300)
== END ==
LOC: M LAB 10:13
PROVIDERS: ATTEND Family Medicine
DX: E03.9 Hypothyroidism, unspecified (principal); M50.30 Other cervical disc degeneration, unspecified cervical region; G89.4 Chronic pain syndrome; F33.9 Major depressive disorder, recurrent, unspecified; G25.81 Restless legs syndrome; E78.5 Hyperlipidemia, unspecified; K21.9 Gastro-esophageal reflux disease without esophagitis; D69.6 Thrombocytopenia, unspecified; S62.235A Other nondisplaced fracture of base of first metacarpal bone, left hand, initial encounter for closed fracture; X58.XXXA Exposure to other specified factors, initial encounter; Y92.9 Unspecified place or not applicable; K02.9 Dental caries, unspecified

== ENCOUNTER → 2018-04-03 | Outpatient (REF) | payer MEDICARE ==
[2018-04-08 14:58] LABS: HPV HYBRID CAPTURE II Negative (Negative)
== END ==
LOC: M LAB REF 17:18
PROVIDERS: ATTEND Specialist
DX: Z12.4 Encounter for screening for malignant neoplasm of cervix (principal)
CPT/HCPCS: 87624; G0123

== ENCOUNTER → 2018-06-09 | Outpatient (CLI) | payer MEDICARE, MEDICAID ==
--- NOTE | 2018-06-10 04:55 | REP ---
Clinical: Abnormal liver function tests Technique: Ware scale ultrasound using curved array transducer. Findings: The liver is enlarged measuring approximately 20 cm in craniocaudal length and includes increased echogenicity suggesting fatty infiltration. No focal hepatic lesion identified. Pancreas is incompletely evaluated due to interposed bowel gas. The patient is status post cholecystectomy. No biliary ductal dilatation is appreciated, and the common bile duct measures 7.0 mm diameter. The right kidney is normal in reniform shape without hydronephrosis and measures 10.4 x 5.6 x 4.2 cm. No ascites. Visualized portions of the abdominal aorta normal. Impression: Hepatomegaly and fatty infiltration to the liver. Electronically Signed by Juan David Manzano MD 06/10/2018 04:46 A
== END ==
LOC: M RAD 09:09
PROVIDERS: ATTEND Internal Medicine Gastroenterology
DX: R16.0 Hepatomegaly, not elsewhere classified (principal); K76.0 Fatty (change of) liver, not elsewhere classified

== ENCOUNTER → 2018-06-17 | Outpatient (CLI) | payer MEDICARE, MEDICAID ==
[2018-06-17 10:30] LABS: ALBUMIN 3.8 GM/DL (3.2-5.2); ALT/SGPT 14 U/L (12-78); BILIRUBIN,DIRECT < 0.1 MG/DL (0.0-0.2); BILIRUBIN,TOTAL 0.5 MG/DL (0.2-1.0); IRON (FE) 68 UG/DL (50-170); PERCENT SATURATION 21.4 % (13.2-45.0); TOTAL IRON BINDING CAPACITY 318 UG/DL (250-450); TOTAL PROTEIN 7.5 GM/DL (6.4-8.2)
[2018-06-17 10:32] LABS: PROTHROMBIN TIME 13.3 SECONDS (12.1-14.4)
[2018-06-17 10:57] LABS: HEPATITIS B SURFACE ANTIGEN NEGATIVE (NEGATIVE)
[2018-06-17 11:24] LABS: HEPATITIS B CORE ANTIBODY IGM NEGATIVE (NEGATIVE); HEPATITIS C VIRUS ABY INDEX 0.1 INDEX (<0.8)
[2018-06-17 11:27] LABS: HEPATITIS A ANTIBODY IGM NEGATIVE (NEGATIVE)
[2018-06-23 00:09] LABS: ANCA-ATYPICAL <1:20 titer (Neg:<1:20); ANTI-MITOCHONDRIAL ANTIBODY <20.0 Units (0.0-20.0); ANTINUCLEAR ANTIBODIES DIRECT Negative (Negative); CERULOPLASMIN 29.3 mg/dL (19.0-39.0); CYTOPLASMIC NEUTROP AB ANCA-C <1:20 titer (Neg:<1:20); LIVER-KIDNEY MICROSOMAL ABY <20.1 Units (0.0-20.0); PERINUCLEAR AB ANCA-P <1:20 titer (Neg:<1:20); TISSUE TRANSGLUTAMINASE IgA <2 U/mL (0-3)
== END ==
LOC: M LAB 09:17
PROVIDERS: ATTEND Internal Medicine Gastroenterology
DX: R94.5 Abnormal results of liver function studies (principal)

== ENCOUNTER → 2018-07-15 | Outpatient (CLI) | payer MEDICARE, MEDICAID ==
[~2018-07-15] MED LIST changes: -ASPI1TAB PO; +ASPI81TA26 PO
--- NOTE | 2018-07-15 10:29 | REPMRS ---
Patient History The patient states she had a clinical breast exam in March 2018. Family history of breast cancer and endometrial cancer in mother. 3D TOMOSYNTHESIS WAS PERFORMED. Digital Mammo Screening Bilat: July 15, 2018 - Exam #: [id number] Bilateral CC and MLO view(s) were taken. Technologist: Lashawn Frazier, Technologist Prior study comparison: November 03, 2015, digital woman screen mammo, performed at [facility] [place]. 2011, digital bilateral screening mammo, performed at [facility]. FINDINGS: There are scattered fibroglandular densities. There has been no change in the appearance of the mammogram from the prior studies. There is a mild amount of residual fibroglandular tissue which is fairly symmetric. There is no interval development of dominant mass, architectural distortion, or clustered microcalcification suggestive of malignancy. Assessment: BI-RADS/ACR category 1 mammogram. Negative Mammogram. Recommendation Routine screening mammogram in 1 year (for women over age 40). This mammogram was interpreted with the aid of an FDA-approved computer-aided dectection system. Electronically Signed By: Preet Ware MD 07/15/18 1291
== END ==
LOC: M RAD 08:57
PROVIDERS: ATTEND Specialist
DX: Z12.31 Encounter for screening mammogram for malignant neoplasm of breast (principal); Z80.3 Family history of malignant neoplasm of breast; Z80.49 Family history of malignant neoplasm of other genital organs

== ENCOUNTER → 2018-07-21 | Outpatient (CLI) | payer MEDICARE, MEDICAID ==
[2018-07-21 15:59] LABS: CHLAMYDIA DNA AMPLIFICATION NEGATIVE (NEGATIVE); GC DNA AMPLIFICATION NEGATIVE (NEGATIVE)
[2018-07-22 12:33] LABS: HEPATITIS C VIRUS ABY INDEX 0.2 INDEX (<0.8); HIV 1&2 SCREEN CENTAUR NEGATIVE (NEGATIVE)
== END ==
LOC: M SMT 10:16
PROVIDERS: ATTEND Specialist
DX: Z11.3 Encounter for screening for infections with a predominantly sexual mode of transmission (principal)

== ENCOUNTER → 2018-08-25 | Outpatient (CLI) | payer MEDICARE, MEDICAID ==
[2018-08-25 11:02] LABS: BASO % 0.6 % (0.0-1.0); EOS # 0.1 10^3/uL (0.0-0.50); EOS % 1.4 % (0.0-3.0); HEMATOCRIT 44.1 % (36.0-47.0); HEMOGLOBIN 14.7 g/dl (12.0-15.5); LYMPH # 2.8 10^3/uL (1.5-4.5); LYMPH % 39.3 % (24.0-44.0); MEAN CORPUSCULAR HEMOGLOBIN 31.7 pg (27.0-33.0); MEAN CORPUSCULAR HGB CONC 33.3 g/dl (32.0-36.5); MONO # 0.6 10^3/uL (0.0-0.8); MONO % 7.9 % (0.0-5.0); NEUTROPHILS # 3.6 10^3/uL (1.8-7.7); NEUTROPHILS % 50.5 % (36.0-66.0); RED BLOOD COUNT 4.64 10^6/uL (4.00-5.40); WHITE BLOOD COUNT 7.2 10^3/uL (4.0-10.0)
[2018-08-25 11:13] LABS: PLATELET COUNT, AUTOMATED 91 10^3/uL (150-450)
[2018-08-25 11:39] LABS: ALBUMIN 3.9 GM/DL (3.2-5.2); ALT/SGPT 19 U/L (12-78); BILIRUBIN,TOTAL 0.5 MG/DL (0.2-1.0); BLOOD UREA NITROGEN 8 MG/DL (7-18); CALCIUM LEVEL 9.1 MG/DL (8.5-10.1); CARBON DIOXIDE LEVEL 29 MEQ/L (21-32); CHLORIDE LEVEL 108 MEQ/L (98-107); CREATININE FOR GFR 0.78 MG/DL (0.55-1.30); GLOMERULAR FILTRATION RATE > 60.0 (>51); GLUCOSE, FASTING 75 MG/DL (70-100); POTASSIUM SERUM 4.3 MEQ/L (3.5-5.1); SODIUM LEVEL 142 MEQ/L (136-145); TOTAL PROTEIN 7.7 GM/DL (6.4-8.2)
== END ==
LOC: M LAB 10:01
PROVIDERS: ATTEND Internal Medicine Gastroenterology
DX: R94.5 Abnormal results of liver function studies (principal)

== ENCOUNTER → 2018-08-28 | Outpatient (CLI) | payer MEDICARE, MEDICAID ==
--- NOTE | 2018-08-28 14:27 | REP ---
ABDOMINAL ULTRASOUND WITH DUPLEX DOPPLER EVALUATION OF PORTAL VASCULATURE: Real-time sonographic evaluation of abdomen performed. Patient has had a prior cholecystectomy. There is no intrahepatic or extrahepatic biliary dilatation, common bile duct measuring 5 mm. No ascites is seen. Liver demonstrates diffuse heterogeneous increased echotexture compatible with diffuse fibrofatty infiltration. No gross liver mass is seen. Pancreas could not be seen due to overlying bowel gas. Spleen is enlarged measuring 14.8 cm in length, with no intrinsic abnormality. Kidneys are normal in size and echotexture, right kidney measuring 10.8 x 5.3 x 4.5 cm and left kidney 11.2 x 5.0 x 5.0 cm. There is no renal mass, hydronephrosis, or nephrolithiasis. Abdominal aorta is not dilated, with no aneurysm, proximally measuring 2.4 cm and distally 1.7 cm in AP dimension. Real-time ultrasound evaluation and duplex Doppler interrogation of the portal vasculature is performed. The superior mesenteric vein is obscured by overlying bowel gas as is the central splenic vein. The peripheral splenic vein is patent with normal direction of flow having a velocity 15.9 cm/s. Main portal vein demonstrates patent flow and normal diameter of 8 mm. Peak velocity is 36.6 cm/s. Portal vein and hepatic vein branches are patent with no thrombus and normal direction of flow. Peak systolic velocity of the main hepatic artery is 66.4 cm/s with resistive index 0.66. There is loss of phasicity of the waveforms of the hepatic veins. IMPRESSION: Status post cholecystectomy. No biliary dilation or free fluid. Diffuse fibrofatty infiltration of the liver. Mild splenomegaly. Normal caliber of main portal vein and normal direction of flow. Electronically Signed by Preet Ware MD 09/01/2018 09:46 A
== END ==
LOC: M RAD 08:25
PROVIDERS: ATTEND Internal Medicine Gastroenterology
DX: K76.0 Fatty (change of) liver, not elsewhere classified (principal); R16.1 Splenomegaly, not elsewhere classified; Z90.49 Acquired absence of other specified parts of digestive tract

== ENCOUNTER → 2018-09-18 | Outpatient (CLI) | payer MEDICARE, MEDICAID ==
[~2018-09-18] MED LIST changes: +AMOX875T; +ATOR80TA59; +CLAR2.5T PO; +D-10TAB2 PO; +ESTR62CR; +FLUTISP; +MIRA0.5T PO; +OMEP40CA97 PO; +PRAV20TA2; +ZETI10TA16 PO; -ZETI10TA30 PO
--- NOTE | 2018-09-24 01:16 | ECWPNPC ---
PATIENT NAME: JOSHUA HERMOSILLO : 1960 GENDER: FEMALE VISIT DATE: 09/18/2018 DISCHARGE DATE: 09/18/18 1123 VISIT LOCKED DATE TIME: PHYSICIAN: MERLINE DE LA FUENTE MD RESOURCE: MERLINE DE LA FUENTE MD REASON FOR APPOINTMENT 1. LBP/DDD HISTORY OF PRESENT ILLNESS HISTORY OF PRESENT ILLNESS: PAIN THE PATIENT DESCRIBES THE PAIN... 57 YEAR OLD FEMALE PATIENT WITH A HISTORY OF MULTIPLE BODY PAIN. THE PATIENT DESCRIBES THE PAIN ACHING, TENDER, SHARP, STABBING, AND CONTINUOUS WITH A PAIN SCORE OF 4-8/10 DEPENDING ON PHYSICAL ACTIVITY. THE PATIENT SAYS HER PAIN IS MAINLY LOCATED IN HER LOW BACK AND NECK AREAS. THE PATIENT SAYS THAT SHE HAS HAD THIS PAIN SINCE 2012 AFTER SHE TURNED HER NECK TOO FAR. THE PATIENT SAYS SHE IS CURRENTLY USING TYLENOL TO AID IN PAIN RELIEF. THE PATIENT REPORTS THAT IN 2012 HER DOCTOR HAD CONCERNS ABOUT HER HAVING MS, BUT SHE WAS DIAGNOSED WITH TRANSVERSE MYELITIS. PATIENT DENIES UNEXPLAINABLE WEIGHT LOSS, FEVER, CHILLS, NEW CHANGES ON HER URINARY OR BOWEL CONTROL. FALL RISK SCREENING: SCREENING :NO FALLS REPORTED IN THE LAST YEAR CURRENT MEDICATIONS TAKING OMEPRAZOLE 40 MG CAPSULE DELAYED RELEASE 1 CAPSULE ORALLY ONCE A DAY TAKING ASPIR-81 81 MG TABLET DELAYED RELEASE 1 TABLET ORALLY ONCE A DAY TAKING PRAVASTATIN 80 80MG TABLET DIRECTED ORAL TAKING FOLIC ACID 1 MG TABLET DIRECTED ORALLY TAKING VITAMIN B-12 1000 MCG TABLET 1 TABLET ORALLY ONCE A DAY TAKING VITAMIN D 1000 UNIT CAPSULE 1 CAPSULE ORALLY ONCE A DAY TAKING PAROXETINE HCL 40 MG TABLET 1 TABLET IN THE MORNING ORALLY ONCE A DAY TAKING LORATADINE 10 MG TABLET 1 TABLET ORALLY ONCE A DAY TAKING DOCQLACE 100 MG CAPSULE 1 CAPSULE NEEDED ORALLY ONCE A DAY TAKING PRAMIPEXOLE DIHYDROCHLORIDE 0.5 MG TABLET 1 TABLET BEFORE BEDTIME ORALLY ONCE A DAY TAKING NASONEX 50 MCG/ACT SUSPENSION 2 SPRAYS IN EACH NOSTRIL NASALLY ONCE A DAY TAKING EPIPEN 2-CRISTÓBAL 0.3 MG/0.3ML DEVICE DIRECTED INJECTION TAKING VICODIN ES 7.5-750 MG TABLET 1 TABLET NEEDED ORALLY EVERY 6 HRS TAKING TIZANIDINE COMFORT PAC 4 MG MISCELLANEOUS DIRECTED COMBINATION TAKING SUMATRIPTAN SUCCINATE 100 MG TABLET 1 TABLET NEEDED ONE TIME ORALLY ONCE A DAY TAKING ZITHROMAX Z-CRISTÓBAL 250 MG TABLET 2 TABLET ON THE FIRST DAY, THEN 1 TABLET DAILY FOR 4 DAYS ORALLY ONCE A DAY TAKING ALBUTEROL SULFATE HFA 108 MCG/ACT AEROSOL SOLUTION 2 PUFFS NEEDED INHALATION EVERY 4 HRS TAKING SPACER/AERO-HOLDING CHAMBERS 1 ADULT KIT KIT DIRECTED INHALED DIRECTED TAKING LEVOTHYROXINE SODIUM 100 MCG TABLET 1 TABLET ON AN EMPTY STOMACH IN THE MORNING ORALLY ONCE A DAY TAKING BACLOFEN 10 MG TABLET 1 TABLET WITH FOOD OR MILK ORALLY THREE TIMES A DAY TAKING SINGULAIR 10 MG TABLET 1 TABLET ORALLY ONCE A DAY TAKING NIACIN ER 1000 MG TABLET EXTENDED RELEASE 2 TABLET WITH FOOD ORALLY ONCE A DAY TAKING CALCIUM & MAGNESIUM CARBONATES TAKING BIOTIN 1000 MCG TABLET 1 TABLET ORALLY ONCE A DAY TAKING IRON 325 (65 FE) MG TABLET 1 TABLET ORALLY ONCE A DAY TAKING PREMARIN 0.625 MG/GM CREAM DIRECTED VAGINAL DISCONTINUED LEVOTHROID 125MCG TABLET 1 TABLET ON AN EMPTY STOMACH IN THE MORNING ORALLY ONCE A DAY MEDICATION LIST REVIEWED AND RECONCILED WITH THE PATIENT PAST MEDICAL HISTORY 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 1 SON(S) , 2 DAUGHTER(S) - HEALTHY. 1 SISTER DECEASEDSON GIVEN UP FOR ADOPTION1 DAUGHTER WITH DOWNS SYNDROME. SOCIAL HISTORY GENERAL: TOBACCO USE ARE YOU A:CURRENT SMOKER ARE YOU INTERESTED IN QUITTING?NOT READY TO QUIT HOW MANY CIGARETTES A DAY DO YOU SMOKE? PAIN CLINIC PFS, CLERGY, PUBLIC HEALTH REFERRALS HAS THE PATIENT BEEN EDUCATED REGARDING HIS/HER PLAN OF CARE?YES HAS THE PATIENT BEEN EDUCATED REGARDING PAIN, THE RISK FOR PAIN, THE IMPORTANCE OF EFFECTIVE PAIN MANAGEMENT, AND THE PAIN ASSESSMENT PROCESS?YES ADVANCE DIRECTIVE ADVANCE DIRECTIVE DISCUSSED WITH PATIENT:YES JAROD BOWEN [phone] RAMOS BOSTON [phone] [facility] [id number] [facility] L[facility] L[facility]UAGES SPOKEN:[place]ATVI[place] LEARNING BARRIERS / SPECIAL NEEDS BARRIERS TO LEARNING?NO HEARING IMPAIRED?NO VISION IMPAIRED?YES :CORRECTIVE LENSES COGNITIVELY IMPAIRED?NO READINESS TO LEARN?YES LEARNING PREFERENCES?NO LEARNING CAPABILITIES PRESENT?YES EMOTIONAL BARRIERS?NO SPECIAL DEVICES?YES :CANE, WALKER HOSPITALIZATION/MAJOR DIAGNOSTIC PROCEDURE CHILDBIRTH REVIEW OF SYSTEMS REVIEWED BY: PROVIDER: MERLINE DE LA FUENTE MD . CONSTITUTIONAL: ANY CHANGE IN YOUR MEDICAL CONDITION? NO . CHILLS NO . FEVER NO . INFECTION: DO YOU HAVE NEW INFECTIONS? NO . DO YOU HAVE HISTORY OF MRSA? NO . MUSCULOSKELETAL: ANY NEW PATTERNS OF PAIN OR NUMBNESS? YES, LEFT NECK PAIN AND LEFT ARM NUMBNESS . GASTROENTEROLOGY: ANY NEW CHANGE IN BOWEL CONTROL? NO . GENITOURINARY: ANY NEW CHANGE IN BLADDER CONTROL? NO . IS THERE A CHANCE YOU COULD BE ? NO . HEMATOLOGY/LYMPH: DO YOU TAKE ANY BLOOD THINNERS? (FOR EXAMPLE- COUMADIN, PLAVIX, AGGRENOX, PLATEL, PRADAXA, OR XARELTO) NO . WHEN WAS YOUR LAST DOSE? DATE: TIME: . NEUROLOGY: HAVE YOU FALLEN IN THE PAST 12 MONTHS? NO . ANY NEW EXTREMITY NUMBNESS OR WEAKNESS? YES, LEFT ARM NUMBNESS . CARDIOLOGY: DO YOU HAVE A PACEMAKER OR DEFIBRILLATOR? NO . RESPIRATORY: HAVE YOU BEEN SICK IN THE PAST WEEK? NO . FEVER NO . FLU LIKE SYMPTOMS? NO . COUGH NO . INTEGUMENTARY: DO YOU HAVE ANY RASHES OR OPEN SORES? YES, SORES ON LEGS FROM CAT . ALLERGIC/IMMUNO: ARE YOU ALLERGIC TO IV DYE? NO . ANY NEW ALLERGIES? NO . PSYCHIATRIC: DO YOU HAVE THOUGHTS OF HURTING YOURSELF OR SOMEONE ELSE? NO . ARE YOU ABUSED, NEGLECTED, OR IN AN UNSAFE ENVIRONMENT? NO . ENDOCRINOLOGY: ARE YOU DIABETIC? NO . OTHER: DO YOU NEED ANY PRESCRIPTIONS? NO . IF YES, PLEASE LIST: ____ . ANY NEW PROBLEMS WITH YOUR MEDICATIONS? NO . WHEN DID YOU LAST EAT? ____ . WHEN DID YOU LAST DRINK? ____ . WHAT DID YOU LAST DRINK? ____ . NAME OF PERSON DRIVING YOU HOME? ____ . DO YOU HAVE ANY OTHER QUESTIONS OR CONCERNS NO . VITAL SIGNS WT 193 LBS, HT 64 IN, BMI 33.12 INDEX, BP 111/56 MM HG, HR 91 /MIN, RR 20 /MIN, TEMP 96.3 F, OXYGEN SAT % 97%, NA INITIALS SC 09:57, REVIEWED BY: EM. EXAMINATION GENERAL EXAMINATION: PATIENT IS ALERT O X 3 AND COOPERATIVE. LUNGS CLEAR, TO AUSCULTATION. HEART: NO MURMURS OR GALLOPS; FACIAL CRANIAL NERVES ARE GROSSLY NORMAL. GOOD SYMMETRY OF FACIAL MUSCLE MOVEMENT. NORMAL VISUAL PEREZ. ANTALGIC GAIT. PATIENT IS MOVING SLOWLY. SEVERE TENDERNESS OVER THE CERVICOTHORACIC AND LUMBAR AREAS. PRESENCE OF TRIGGER POINTS AND BANDS OF TISSUE WITH RESTRICTION OF MOVEMENT OF THE BACK. MRI OF THE LUMBAR SPINE DONE ON 01/10/2017 SHOWS BULGING DISCS. MRI OF THE CERVICAL SPINE DONE ON 01/10/2017 SHOWS BULGING DISCS AND FACET ARTHROPATHY CHANGES. ASSESSMENTS MYALGIA, OTHER SITE - M79.18 (PRIMARY) CERVICALGIA - M54.2 LOW BACK PAIN - M54.5 OTHER CHRONIC PAIN - G89.29 R/O TRANSVERSE MYELITIS. TREATMENT MYALGIA, OTHER SITE CLINICAL NOTES: WE DISCUSSED SEVERAL ISSUES WITH MRS. HERMOSILLO'S PAIN MANAGEMENT CASE. DUE TO THE TRIGGER PINTS, BANDS OF TISSUE, AND RESTRICTION OF MOVEMENT, I WOULD LIKE TO MOVE FORWARD WITH A TRIGGER POINT INJECTION AT THIS TIME. WE DISCUSSED THE BENEFITS, RISKS, AND ALTERNATIVES OF THE INJECTION AND THE PATIENT WOULD LIKE TO PROCEED. I WILL ALSO REFER THE PATIENT TO PALLIATIVE CARE TO CONSIDER MEDICATION MANAGEMENT. THE PATIENT WILL FOLLOW UP A FEW WEEKS AFTER THE INJECTION. INSTRUCTIONS WERE GIVEN, QUESTIONS WERE ANSWERED, PATIENT REPORTS UNDERSTANDING AND AGREES WITH THE PLAN. I, SANTO ALLEN, DOCUMENTED THE ABOVE INFORMATION ACTING A SCRIBE FOR DR. DE LA FUENTE. I HAVE REVIEWED THE ABOVE DOCUMENT, WRITTEN BY SANTO BOJORQUEZIBHamzah AND I VERIFY THAT IT IS ACCURATE. DEAR DR. RENAE:THANK YOU FOR YOUR KIND REFERRAL OF MRS. HERMOSILLO. IF YOU WANT TO DISCUSS HER CASE WITH ME PLEASE CALL ME AT THE PAIN CENTER AT [phone]. SINCERELY,MERLINE DE LA FUENTE, [facility] . OTHERS NOTES: OPTIONS: TRIGGER POINT INJECTION MATERIAL WAS PRINTED. PREVENTIVE MEDICINE PAIN CLINIC TEACHING: PROCEDURE TEACHING PT GIVEN WRITTEN AND VERBAL EDUCATION ON TRIGGER POINT INJECTIONS. PT ALSO GIVEN WRITTEN AND VERBAL PRE-PROCEDURE INSTRUCTIONS. PT VERBALIZES UNDERSTANDING OF ALL EDUCATION AND INSTRUCTIONS. DONELL CUMMINGS 09/18/2018 11:22:57 AM > . PROCEDURE CODES FA211 ESTABILISHED PATIENT [facility] FACILITY CHARGE G8427 CURRENT MEDS W/DOSAGES DOCUMENTED G8730 PAIN ASSESS POS TOOL F/U PLAN DOC DISPOSITION & COMMUNICATION FOLLOW UP 3 WEEKS AFTER (REASON: TPI NECK AND LOW BACK) ELECTRONICALLY SIGNED BY MERLINE DE LA FUENTE MD, MD ON 09/23/2018 AT 05:37 PM EDT DISCLAIMER : THIS IS A VISIT SUMMARY EXTRACTED FROM THE [employer] CHART. IT IS NOT A COPY OF THE [employer] PROGRESS NOTE. MTDD
== END ==
LOC: M PAIN 09:30
PROVIDERS: ATTEND Anesthesiology
DX: G89.29 Other chronic pain (principal); M79.18 Myalgia, other site; M54.2 Cervicalgia; M54.5 Low back pain; D69.6 Thrombocytopenia, unspecified; G25.81 Restless legs syndrome; J30.9 Allergic rhinitis, unspecified; E78.5 Hyperlipidemia, unspecified; F32.9 Major depressive disorder, single episode, unspecified; G43.909 Migraine, unspecified, not intractable, without status migrainosus; G47.33 Obstructive sleep apnea (adult) (pediatric); E03.9 Hypothyroidism, unspecified; K21.9 Gastro-esophageal reflux disease without esophagitis; F17.210 Nicotine dependence, cigarettes, uncomplicated; Z79.82 Long term (current) use of aspirin; Z79.899 Other long term (current) drug therapy; Z88.8 Allergy status to other drugs, medicaments and biological substances; Z91.030 Bee allergy status

== ENCOUNTER → 2018-09-30 | Outpatient (CLI) | payer OTHER, MEDICAID ==
[~2018-09-30] MED LIST changes: -AMOX875T; -ATOR80TA59; -CLAR2.5T PO; -D-10TAB2 PO; -ESTR62CR; -FLUTISP; -MIRA0.5T PO; -OMEP40CA97 PO; -PRAV20TA2; -ZETI10TA16 PO; +ZETI10TA30 PO
[2018-09-30 08:37] LABS: APPEARANCE, URINE HAZY (CLEAR); BACTERIA, URINE AUTO 1+ (NEGATIVE); BILIRUBIN, URINE AUTO NEGATIVE (NEGATIVE); BLOOD, URINE BLOOD NEGATIVE (NEGATIVE); COLOR, URINE YELLOW (YELLOW); GLUCOSE, URINE (UA) AUTO NEGATIVE (NEGATIVE); KETONE, URINE AUTO NEGATIVE (NEGATIVE); LEUKOCYTE ESTERASE, URINE AUTO NEGATIVE (NEGATIVE); MUCUS, URINE SMALL (NEGATIVE); NITRITE, URINE AUTO NEGATIVE (NEGATIVE); PROTEIN, URINE AUTO NEGATIVE (NEGATIVE); RBC, URINE AUTO 4 /HPF (0-3); SPECIFIC GRAVITY URINE AUTO 1.017 (1.002-1.035); SQUAMOUS EPITHELIAL CELL UR AU 7 /HPF (0-6); UROBILINOGEN, URINE AUTO 0.2 mg/dL (0.0-2.0); WBC, URINE AUTO 2 /HPF (0-3)
[2018-09-30 08:52] LABS: BASO % 0.6 % (0.0-1.0); EOS # 0.1 10^3/uL (0.0-0.50); EOS % 1.8 % (0.0-3.0); HEMATOCRIT 41.6 % (36.0-47.0); HEMOGLOBIN 13.5 g/dl (12.0-15.5); LYMPH # 2.5 10^3/uL (1.5-4.5); LYMPH % 39.8 % (24.0-44.0); MEAN CORPUSCULAR HEMOGLOBIN 30.7 pg (27.0-33.0); MEAN CORPUSCULAR HGB CONC 32.5 g/dl (32.0-36.5); MEAN CORPUSCULAR VOLUME 94.5 fl (80.0-96.0); MONO # 0.3 10^3/uL (0.0-0.8); NEUTROPHILS # 3.2 10^3/uL (1.8-7.7); NEUTROPHILS % 52.5 % (36.0-66.0); WHITE BLOOD COUNT 6.2 10^3/uL (4.0-10.0)
[2018-09-30 08:54] LABS: PLATELET COUNT, AUTOMATED 76 10^3/uL (150-450)
[2018-09-30 08:56] LABS: COLLAGEN EPINEPHRINE 228 SECONDS (74-162)
[2018-09-30 09:22] LABS: ALBUMIN 3.6 GM/DL (3.2-5.2); ALT/SGPT 18 U/L (12-78); BILIRUBIN,TOTAL 0.5 MG/DL (0.2-1.0); BLOOD UREA NITROGEN 7 MG/DL (7-18); CALCIUM LEVEL 8.7 MG/DL (8.5-10.1); CARBON DIOXIDE LEVEL 30 MEQ/L (21-32); CHLORIDE LEVEL 110 MEQ/L (98-107); CHOLESTEROL LEVEL 120 MG/DL (<200); CHOLESTEROL RISK RATIO 2.857 (<5); CPK CREATINE PHOSPHOKINASE 101 U/L (26-192); CREATININE FOR GFR 0.86 MG/DL (0.55-1.30); FERRITIN 86 NG/ML (8-252); FREE T4 0.93 NG/DL (0.76-1.46); GLOMERULAR FILTRATION RATE > 60.0 (>51); GLUCOSE, FASTING 94 MG/DL (70-100); HDL CHOLESTEROL 42 MG/DL (>40); IRON (FE) 76 UG/DL (50-170); LDL CHOLESTEROL 65 MG/DL (<100); NON-HDL-C 78 MG/DL; PERCENT SATURATION 26.2 % (13.2-45.0); POTASSIUM SERUM 4.3 MEQ/L (3.5-5.1); SODIUM LEVEL 145 MEQ/L (136-145); TOTAL IRON BINDING CAPACITY 290 UG/DL (250-450); TRIGLYCERIDES LEVEL 66 MG/DL (<150)
[2018-09-30 09:23] LABS: VITAMIN B12 LEVEL 531 PG/ML
[2018-09-30 09:40] LABS: FOLATE 17.2 NG/ML
[2018-09-30 09:43] LABS: ERYTHROCYTE SEDIMENTATION RATE 26 mm/hr (0-30)
[2018-09-30 10:30] LABS: COLLAGEN ADP 127 SECONDS (56-103)
[2018-10-02 14:09] LABS: CREATININE, URINE 150.4 mg/dL (20.0-300.0)
== END ==
LOC: M LAB 07:50
PROVIDERS: ATTEND Family Medicine
DX: E03.9 Hypothyroidism, unspecified (principal); M50.30 Other cervical disc degeneration, unspecified cervical region; G89.4 Chronic pain syndrome; F33.9 Major depressive disorder, recurrent, unspecified; E78.5 Hyperlipidemia, unspecified; G25.81 Restless legs syndrome; K21.9 Gastro-esophageal reflux disease without esophagitis; D69.6 Thrombocytopenia, unspecified; F17.210 Nicotine dependence, cigarettes, uncomplicated

== ENCOUNTER 2018-11-12 17:11 | Emergency (ER) | payer MEDICARE, MEDICAID ==
[~2018-11-12] VITALS: Ht 162.6 cm; Wt 86.4 kg
[~2018-11-12 17:11] MED LIST changes: +OMEP40CA97 PO; +ZETI10TA16 PO; -ZETI10TA30 PO
[2018-11-12] MEDS ORDERED: ATOR80TA59 (18:12)
[2018-11-12 18:21] LABS: BASO % 0.3 % (0.0-1.0); EOS # 0.1 10^3/uL (0.0-0.50); EOS % 1.4 % (0.0-3.0); HEMATOCRIT 39.1 % (36.0-47.0); HEMOGLOBIN 13.1 g/dl (12.0-15.5); LYMPH # 3.1 10^3/uL (1.5-4.5); LYMPH % 44.2 % (24.0-44.0); MEAN CORPUSCULAR HEMOGLOBIN 31.5 pg (27.0-33.0); MEAN CORPUSCULAR HGB CONC 33.5 g/dl (32.0-36.5); MONO # 0.4 10^3/uL (0.0-0.8); MONO % 5.8 % (0.0-5.0); NEUTROPHILS # 3.4 10^3/uL (1.8-7.7); RED BLOOD COUNT 4.16 10^6/uL (4.00-5.40)
[2018-11-12 18:25] LABS: PLATELET COUNT, AUTOMATED 86 10^3/uL (150-450)
[2018-11-12 18:33] LABS: PROTHROMBIN TIME 12.9 SECONDS (11.8-14.0)
[2018-11-12 18:34] LABS: PARTIAL THROMBOPLASTIN TIME 26.1 SECONDS (25.0-38.4)
[2018-11-12 18:55] LABS: ALBUMIN 3.4 GM/DL (3.2-5.2); BILIRUBIN,DIRECT 0.1 MG/DL (0.0-0.2); BILIRUBIN,TOTAL 0.3 MG/DL (0.2-1.0); TOTAL PROTEIN 6.9 GM/DL (6.4-8.2)
[2018-11-12] MEDS ORDERED: NS 500 ML IV ONE (19:45)
[2018-11-12] MEDS ORDERED: MORPHINE 2 MG/ML 1ML VIAL (J2270) IV ONE (19:45)
[2018-11-12 20:58] VITALS: BP 148/77
[2019-01-07] MEDS ORDERED: ESTR62CR (11:49)
[2019-01-07] MEDS ORDERED: D-10TAB2 PO (11:49)
[2019-01-07] MEDS ORDERED: MIRA0.5T PO (11:49)
== END 2018-11-12 21:58 | disposition home or self-care (01) ==
LOC: M ED 17:11 → EDBD 17:11 → M ED 21:58
DX: D69.6 Thrombocytopenia, unspecified (principal); E03.9 Hypothyroidism, unspecified; F10.10 Alcohol abuse, uncomplicated; E78.5 Hyperlipidemia, unspecified; Z79.899 Other long term (current) drug therapy; Z79.890 Hormone replacement therapy; Z79.82 Long term (current) use of aspirin; Z88.8 Allergy status to other drugs, medicaments and biological substances; Z91.030 Bee allergy status; F17.210 Nicotine dependence, cigarettes, uncomplicated

== ENCOUNTER → 2018-11-17 | Outpatient (CLI) | payer MEDICARE ==
[~2018-11-17] MED LIST changes: +AMOX875T; +ATOR80TA59; +CLAR2.5T PO; +D-10TAB2 PO; +ESTR62CR; +FLUTISP; +MIRA0.5T PO; +PRAV20TA2
[2018-11-17 17:49] LABS: BASO % 0.4 % (0.0-1.0); EOS % 0.6 % (0.0-3.0); HEMATOCRIT 42.3 % (36.0-47.0); HEMOGLOBIN 14.1 g/dl (12.0-15.5); LYMPH # 2.5 10^3/uL (1.5-4.5); MEAN CORPUSCULAR HEMOGLOBIN 31.5 pg (27.0-33.0); MEAN CORPUSCULAR HGB CONC 33.3 g/dl (32.0-36.5); MEAN CORPUSCULAR VOLUME 94.4 fl (80.0-96.0); MONO # 0.4 10^3/uL (0.0-0.8); MONO % 5.6 % (0.0-5.0); NEUTROPHILS # 4.2 10^3/uL (1.8-7.7); NEUTROPHILS % 58.1 % (36.0-66.0); RED BLOOD COUNT 4.48 10^6/uL (4.00-5.40); WHITE BLOOD COUNT 7.2 10^3/uL (4.0-10.0)
[2018-11-17 17:51] LABS: PLATELET COUNT, AUTOMATED 81 10^3/uL (150-450)
[2018-11-17 18:12] LABS: ALBUMIN 3.7 GM/DL (3.2-5.2); ALT/SGPT 154 U/L (12-78); BILIRUBIN,TOTAL 0.5 MG/DL (0.2-1.0); BLOOD UREA NITROGEN 6 MG/DL (7-18); CALCIUM LEVEL 8.6 MG/DL (8.5-10.1); CARBON DIOXIDE LEVEL 30 MEQ/L (21-32); CHLORIDE LEVEL 109 MEQ/L (98-107); CREATININE FOR GFR 0.86 MG/DL (0.55-1.30); GLOMERULAR FILTRATION RATE > 60.0 (>51); GLUCOSE, FASTING 138 MG/DL (70-100); POTASSIUM SERUM 3.8 MEQ/L (3.5-5.1); SODIUM LEVEL 142 MEQ/L (136-145); TOTAL PROTEIN 7.3 GM/DL (6.4-8.2)
== END ==
LOC: M LAB 16:48
PROVIDERS: ATTEND Family Medicine
DX: K62.5 Hemorrhage of anus and rectum (principal); E87.6 Hypokalemia

== ENCOUNTER → 2018-12-24 | Outpatient (CLI) | payer MEDICARE ==
[~2018-12-24] MED LIST changes: -AMOX875T; -CLAR2.5T PO; -D-10TAB2 PO; -ESTR62CR; -FLUTISP; -MIRA0.5T PO; -OMEP40CA97 PO; -PRAV20TA2
[2018-12-24 15:03] LABS: BASO % 0.4 % (0.0-1.0); EOS # 0.1 10^3/uL (0.0-0.5); EOS % 0.7 % (0.0-3.0); HEMATOCRIT 41.7 % (36.0-47.0); HEMOGLOBIN 13.8 g/dl (12.0-15.5); LYMPH # 2.8 10^3/uL (1.5-5.0); LYMPH % 37.1 % (24.0-44.0); MEAN CORPUSCULAR HEMOGLOBIN 31.6 pg (27.0-33.0); MEAN CORPUSCULAR HGB CONC 33.1 g/dl (32.0-36.5); MEAN CORPUSCULAR VOLUME 95.4 fl (80.0-96.0); MONO # 0.4 10^3/uL (0.0-0.8); MONO % 4.9 % (0.0-5.0); NEUTROPHILS # 4.2 10^3/uL (1.5-8.5); NEUTROPHILS % 56.6 % (36.0-66.0); RED BLOOD COUNT 4.37 10^6/uL (4.00-5.40); WHITE BLOOD COUNT 7.4 10^3/uL (4.0-10.0)
[2018-12-24 15:11] LABS: PLATELET COUNT, AUTOMATED 86 10^3/uL (150-450)
[2018-12-24 15:14] LABS: INR 1.02; PROTHROMBIN TIME 13.1 SECONDS (11.8-14.0)
[2018-12-24 15:30] LABS: ALBUMIN 3.4 GM/DL (3.2-5.2); BILIRUBIN,DIRECT 0.1 MG/DL (0.0-0.2); BILIRUBIN,TOTAL 0.3 MG/DL (0.2-1.0); TOTAL PROTEIN 7.3 GM/DL (6.4-8.2)
== END ==
LOC: M LAB 14:16
PROVIDERS: ATTEND Internal Medicine Gastroenterology
DX: R94.5 Abnormal results of liver function studies (principal)

== ENCOUNTER → 2019-01-07 | Outpatient (CLI) | payer MEDICARE ==
[~2019-01-07] MED LIST changes: +D-10TAB2 PO; +ESTR62CR; +MIRA0.5T PO; +OMEP40CA97 PO
[2019-01-07 10:45] LABS: APPEARANCE, URINE HAZY (CLEAR); BACTERIA, URINE AUTO NEGATIVE (NEGATIVE); BILIRUBIN, URINE AUTO NEGATIVE (NEGATIVE); BLOOD, URINE BLOOD NEGATIVE (NEGATIVE); COLOR, URINE AMBER (YELLOW); GLUCOSE, URINE (UA) AUTO NEGATIVE (NEGATIVE); KETONE, URINE AUTO TRACE mg/dL (NEGATIVE); LEUKOCYTE ESTERASE, URINE AUTO NEGATIVE (NEGATIVE); NITRITE, URINE AUTO NEGATIVE (NEGATIVE); PROTEIN, URINE AUTO NEGATIVE (NEGATIVE); RBC, URINE AUTO 4 /HPF (0-3); SPECIFIC GRAVITY URINE AUTO 1.024 (1.002-1.035); SQUAMOUS EPITHELIAL CELL UR AU 11 /HPF (0-6); WBC, URINE AUTO 1 /HPF (0-3)
[2019-01-07 11:09] LABS: BASO % 0.3 % (0.0-1.0); EOS # 0.1 10^3/uL (0.0-0.5); HEMATOCRIT 42.8 % (36.0-47.0); HEMOGLOBIN 14.3 g/dl (12.0-15.5); LYMPH # 1.9 10^3/uL (1.5-5.0); LYMPH % 32.4 % (24.0-44.0); MEAN CORPUSCULAR HEMOGLOBIN 31.4 pg (27.0-33.0); MEAN CORPUSCULAR HGB CONC 33.4 g/dl (32.0-36.5); MEAN CORPUSCULAR VOLUME 93.9 fl (80.0-96.0); MONO # 0.3 10^3/uL (0.0-0.8); MONO % 5.6 % (0.0-5.0); NEUTROPHILS # 3.6 10^3/uL (1.5-8.5); NEUTROPHILS % 60.4 % (36.0-66.0); RED BLOOD COUNT 4.56 10^6/uL (4.00-5.40); WHITE BLOOD COUNT 5.9 10^3/uL (4.0-10.0)
[2019-01-07 11:35] LABS: ALBUMIN 3.4 GM/DL (3.2-5.2); ALT/SGPT 20 U/L (12-78); BILIRUBIN,TOTAL 0.4 MG/DL (0.2-1.0); BLOOD UREA NITROGEN 10 MG/DL (7-18); CALCIUM LEVEL 8.4 MG/DL (8.5-10.1); CARBON DIOXIDE LEVEL 24 MEQ/L (21-32); CHLORIDE LEVEL 110 MEQ/L (98-107); CHOLESTEROL LEVEL 215 MG/DL (<200); CHOLESTEROL RISK RATIO 4.479 (<5); CREATININE FOR GFR 0.74 MG/DL (0.55-1.30); FREE T4 1.12 NG/DL (0.76-1.46); GLOMERULAR FILTRATION RATE > 60.0 (>51); GLUCOSE, FASTING 146 MG/DL (70-100); HDL CHOLESTEROL 48 MG/DL (>40); LDL CHOLESTEROL 127 MG/DL (<100); NON-HDL-C 167 MG/DL; POTASSIUM SERUM 3.4 MEQ/L (3.5-5.1); SODIUM LEVEL 141 MEQ/L (136-145); TOTAL PROTEIN 7.5 GM/DL (6.4-8.2); TRIGLYCERIDES LEVEL 200 MG/DL (<150)
[2019-01-07 12:06] LABS: PLATELET COUNT, AUTOMATED 80 10^3/uL (150-450)
== END ==
LOC: M LAB 09:48
PROVIDERS: ATTEND Family Medicine
DX: K62.5 Hemorrhage of anus and rectum (principal); E03.9 Hypothyroidism, unspecified; E78.5 Hyperlipidemia, unspecified

== ENCOUNTER 2019-01-21 08:23 | Day surgery (SDC) | payer MEDICARE, MEDICAID ==
[~2019-01-21] VITALS: Ht 162.6 cm; Wt 90.3 kg
[~2019-01-21 08:23] MED LIST changes: +NS 1,000 ML IV ONE
[2019-01-21] MEDS ORDERED: PROPOFOL 200 MG/20 ML VIAL As Ordered ONE (09:57)
[2019-01-21] MEDS ORDERED: LIDOCAINE 2% INJ 100 MG/5 ML SDV (FOR ANES.) As Ordered ONE (09:57)
--- NOTE | 2019-01-21 10:16 | ROOR ---
Patient Name: Donna Casillas Procedure Date: 01/21/2019 9:47 AM Date of : 1960 Age: 58 Room: [facility] Gender: Female Note Status: Finalized Procedure: Colonoscopy Indications: Hematochezia Providers: Elmo HENDRIX MD Referring MD: MELITA RENAE MD Requesting Provider: Medicines: Monitored Anesthesia Care Complications: No immediate complications. Procedure: Pre-Anesthesia Assessment: - The heart rate, respiratory rate, oxygen saturations, blood pressure, adequacy of pulmonary ventilation, and response to care were monitored throughout the procedure. The Colonoscope was introduced through the anus and advanced to the terminal ileum, with identification of the appendiceal orifice and IC valve. The colonoscopy was performed without difficulty. The patient tolerated the procedure well. The quality of the bowel preparation was good. Findings: Hemorrhoids were found on perianal exam. Mild sigmoid diverticulosis and small internal hemorrhoids. The exam was otherwise without abnormality on direct and retroflexion views. Impression: - One external hemorrhoid found on perianal exam. - Mild sigmoid diverticulosis and small internal hemorrhoids. - The examination was otherwise normal on direct and retroflexion views. - No specimens collected. Recommendation: - Continue present medications. - Use fiber, for example Citrucel, Fibercon, Konsyl or Metamucil. Elmo Hendrix MD Elmo HENDRIX MD 01/21/2019 10:15:41 AM Electronically signed by Elmo HENDRIX MD Number of Addenda: 0 Note Initiated On: 01/21/2019 9:47 AM Estimated Blood Loss: Estimated blood loss: none.
[2019-01-21 10:36] VITALS: BP 127/61
== END 2019-01-21 10:53 | disposition home or self-care (01) ==
LOC: M OPP 08:23
PROVIDERS: ATTEND Internal Medicine Gastroenterology
DX: K64.9 Unspecified hemorrhoids (principal); K57.30 Diverticulosis of large intestine without perforation or abscess without bleeding; F17.210 Nicotine dependence, cigarettes, uncomplicated; G47.30 Sleep apnea, unspecified; Z79.82 Long term (current) use of aspirin; Z79.899 Other long term (current) drug therapy; Z91.030 Bee allergy status; Z88.8 Allergy status to other drugs, medicaments and biological substances

== ENCOUNTER 2019-02-07 12:19 | Emergency (ER) | payer MEDICARE, MEDICAID ==
[~2019-02-07] VITALS: Ht 162.6 cm; Wt 90.0 kg
[~2019-02-07 12:19] MED LIST changes: -NS 1,000 ML IV ONE
[2019-02-07 12:20] VITALS: BP 118/63
[2019-02-07] MEDS ORDERED: AMOX875T (13:23)
[2019-02-07] MEDS ORDERED: PRAV20TA2 (13:23)
--- NOTE | 2019-02-07 13:56 | REP ---
Chest x-ray: Two views. History: Cough and sore throat. Comparison chest x-ray: June 30, 2017. Findings: The lungs are symmetrically aerated and clear. The pleural angles are sharp. Heart size is normal. Pulmonary vasculature is not increased. No significant bony abnormality. Impression: Negative chest x-ray. Electronically Signed by Roger Martin MD 02/07/2019 01:48 P
[2019-02-07 14:27] LABS: INFLUENZA A AMPLIFICATION NEGATIVE (NEGATIVE); INFLUENZA B AMPLIFICATION NEGATIVE (NEGATIVE)
[2019-02-07] MEDS ORDERED: FLUTISP (15:17)
[2019-02-07] MEDS ORDERED: CLAR2.5T PO (15:17)
== END 2019-02-07 15:26 | disposition home or self-care (01) ==
LOC: M ED 12:19
DX: H65.113 Acute and subacute allergic otitis media (mucoid) (sanguinous) (serous), bilateral (principal); J31.0 Chronic rhinitis; Z79.899 Other long term (current) drug therapy; Z79.890 Hormone replacement therapy; Z79.82 Long term (current) use of aspirin; Z88.1 Allergy status to other antibiotic agents; Z88.8 Allergy status to other drugs, medicaments and biological substances; Z91.030 Bee allergy status; F17.210 Nicotine dependence, cigarettes, uncomplicated

== ENCOUNTER 2019-04-01 19:09 | Emergency (ER) | payer MEDICARE, MEDICAID ==
[~2019-04-01] VITALS: Ht 162.6 cm; Wt 91.8 kg
[~2019-04-01 19:09] MED LIST changes: +AMOX875T; +CLAR2.5T PO; +FLUTISP; +PRAV20TA2
[2019-04-01] MEDS ORDERED: KETOROLAC 60 MG/2 ML VIAL (J1885) IM ONE (20:45)
[2019-04-01] MEDS ORDERED: ACETAMINOPHEN 325 MG TAB PO ONE (20:45)
[2019-04-01 22:00] VITALS: BP 118/72
== END 2019-04-01 22:01 | disposition home or self-care (01) ==
LOC: M ED 19:09
DX: M25.511 Pain in right shoulder (principal); M79.621 Pain in right upper arm; F17.218 Nicotine dependence, cigarettes, with other nicotine-induced disorders; Z88.8 Allergy status to other drugs, medicaments and biological substances; Z91.030 Bee allergy status
CPT/HCPCS: 96372; 99283; J1885

== ENCOUNTER → 2019-04-12 | Outpatient (CLI) | payer MEDICARE, MEDICAID ==
[2019-04-12 09:38] LABS: APPEARANCE, URINE CLEAR (CLEAR); BACTERIA, URINE AUTO 1+ (NEGATIVE); BILIRUBIN, URINE AUTO NEGATIVE (NEGATIVE); BLOOD, URINE BLOOD NEGATIVE (NEGATIVE); COLOR, URINE YELLOW (YELLOW); GLUCOSE, URINE (UA) AUTO NEGATIVE (NEGATIVE); KETONE, URINE AUTO NEGATIVE (NEGATIVE); LEUKOCYTE ESTERASE, URINE AUTO NEGATIVE (NEGATIVE); NITRITE, URINE AUTO NEGATIVE (NEGATIVE); PROTEIN, URINE AUTO NEGATIVE (NEGATIVE); RBC, URINE AUTO 2 /HPF (0-3); SPECIFIC GRAVITY URINE AUTO 1.019 (1.002-1.035); SQUAMOUS EPITHELIAL CELL UR AU 4 /HPF (0-6); WBC, URINE AUTO 0 /HPF (0-3)
[2019-04-12 09:49] LABS: BASO % 0.4 % (0.0-1.0); EOS # 0.1 10^3/uL (0.0-0.5); EOS % 1.5 % (0.0-3.0); HEMATOCRIT 43.1 % (36.0-47.0); LYMPH # 2.9 10^3/uL (1.5-5.0); MEAN CORPUSCULAR HEMOGLOBIN 30.6 pg (27.0-33.0); MEAN CORPUSCULAR HGB CONC 32.5 g/dl (32.0-36.5); MEAN CORPUSCULAR VOLUME 94.1 fl (80.0-96.0); MONO # 0.3 10^3/uL (0.0-0.8); MONO % 3.7 % (0.0-5.0); NEUTROPHILS # 3.5 10^3/uL (1.5-8.5); NEUTROPHILS % 51.1 % (36.0-66.0); RED BLOOD COUNT 4.58 10^6/uL (4.00-5.40); WHITE BLOOD COUNT 6.8 10^3/uL (4.0-10.0)
[2019-04-12 09:50] LABS: PLATELET COUNT, AUTOMATED 93 10^3/uL (150-450)
[2019-04-12 09:58] LABS: COLLAGEN EPINEPHRINE 138 SECONDS (74-162)
[2019-04-12 10:06] LABS: ERYTHROCYTE SEDIMENTATION RATE 35 mm/hr (0-30)
[2019-04-12 10:24] LABS: ALBUMIN 3.7 GM/DL (3.2-5.2); ALT/SGPT 18 U/L (12-78); BILIRUBIN,TOTAL 0.4 MG/DL (0.2-1.0); BLOOD UREA NITROGEN 12 MG/DL (7-18); C REACTIVE PROTEIN QUANTITATIV 0.75 MG/DL (0.00-0.30); CALCIUM LEVEL 8.3 MG/DL (8.5-10.1); CARBON DIOXIDE LEVEL 28 MEQ/L (21-32); CHLORIDE LEVEL 109 MEQ/L (98-107); CHOLESTEROL LEVEL 144 MG/DL (<200); CHOLESTEROL RISK RATIO 2.769 (<5); CPK CREATINE PHOSPHOKINASE 89 U/L (26-192); CREATININE FOR GFR 0.71 MG/DL (0.55-1.30); FERRITIN 125 NG/ML (8-252); FREE T4 1.22 NG/DL (0.76-1.46); GLOMERULAR FILTRATION RATE > 60.0 (>51); GLUCOSE, FASTING 119 MG/DL (70-100); HDL CHOLESTEROL 52 MG/DL (>40); IRON (FE) 81 UG/DL (50-170); LDL CHOLESTEROL 74 MG/DL (<100); NON-HDL-C 92 MG/DL; PERCENT SATURATION 27.5 % (13.2-45.0); POTASSIUM SERUM 4.3 MEQ/L (3.5-5.1); SODIUM LEVEL 141 MEQ/L (136-145); TOTAL IRON BINDING CAPACITY 295 UG/DL (250-450); TOTAL PROTEIN 7.7 GM/DL (6.4-8.2); TRIGLYCERIDES LEVEL 89 MG/DL (<150)
[2019-04-12 10:28] LABS: VITAMIN B12 LEVEL 391 PG/ML (247-911)
[2019-04-12 10:50] LABS: FOLATE 18.4 NG/ML
[2019-04-14 14:31] LABS: CREATININE, URINE 120.7 mg/dL (20.0-300.0)
== END ==
LOC: M LAB 08:38
PROVIDERS: ATTEND Family Medicine
DX: E03.9 Hypothyroidism, unspecified (principal); M50.30 Other cervical disc degeneration, unspecified cervical region; G89.4 Chronic pain syndrome; F33.9 Major depressive disorder, recurrent, unspecified; G25.81 Restless legs syndrome; E78.5 Hyperlipidemia, unspecified; K21.9 Gastro-esophageal reflux disease without esophagitis; D69.6 Thrombocytopenia, unspecified; F17.210 Nicotine dependence, cigarettes, uncomplicated

== ENCOUNTER → 2019-08-17 | Outpatient (REF) | payer MEDICARE, MEDICAID ==
[~2019-08-17] MED LIST changes: +CICL0.7739 EXT; +CYAN1000VL IM; +DIPH50CA PO; +DOCU100C16 PO; +HM V5000 PO; +HYLANDS LEG CRAMPS PO; +IRON240T PO; +LEVO112T2 PO; -MONT10TA2 PO; +MONT10TA4 PO; +MUCI600T31 PO; +[UNRECOGNIZED DRUG - OTHER] XX; +iron PO
== END ==
LOC: M SFHCWAGY 17:05
PROVIDERS: ATTEND Specialist
DX: Z12.4 Encounter for screening for malignant neoplasm of cervix (principal)
CPT/HCPCS: 87624; G0123

== ENCOUNTER → 2019-08-17 | Outpatient (CLI) | payer MEDICARE, MEDICAID ==
--- NOTE | 2019-08-17 13:05 | REPMRS ---
Patient History The patient states she had a clinical breast exam in July 2019.Family history of breast cancer and endometrial cancer in mother. Digital Woman Screen Mammo: August 17, 2019 - Exam #: [id number] Bilateral CC and MLO view(s) were taken. Technologist: Carrie Conner, Technologist Prior study comparison: July 15, 2018, bilateral digital mammo screening bilat, performed at [facility]. November 03, 2015, digital woman screen mammo performed at [facility]. 2011, digital bilateral screening mammo, performed at [facility]. FINDINGS: There are scattered fibroglandular densities. The Volpara volumetric breast density category is:B. There has been no change in the appearance of the mammogram from the prior studies. There is a mild amount of scattered fibroglandular density which is fairly symmetric. There is no interval development of dominant mass, architectural distortion, or grouped microcalcification suggestive of malignancy. 3-D tomosynthesis shows no additional findings. Assessment: BI-RADS/ACR category 1 mammogram. Negative Mammogram. Recommendation Routine screening mammogram of both breasts in 1 year (for women over age 40). This patient's Lifetime Breast Cancer Risk is estimated at 13.1 %. This mammogram was interpreted with the aid of an FDA-approved computer-aided dectection system. Electronically Signed By: Bhupinder Martin MD 08/17/19 [id number]
== END ==
LOC: M WHC 11:46
PROVIDERS: ATTEND Specialist
DX: Z01.419 Encounter for gynecological examination (general) (routine) without abnormal findings (principal); Z12.31 Encounter for screening mammogram for malignant neoplasm of breast; Z80.3 Family history of malignant neoplasm of breast; Z80.49 Family history of malignant neoplasm of other genital organs
CPT/HCPCS: 77063; 77067; 87624; G0123; G0463

== ENCOUNTER → 2019-08-21 | Outpatient (CLI) | payer MEDICARE, MEDICAID ==
--- NOTE | 2019-08-21 14:47 | REP ---
LEFT WRIST, FOUR VIEWS: There is no evidence of an acute fracture, dislocation or intrinsic bone disease. IMPRESSION: No fracture or dislocation. Electronically Signed by Preet Ware MD 08/21/2019 09:48 P
== END ==
LOC: M RAD 10:14
PROVIDERS: ATTEND Physician Assistant Medical

== ENCOUNTER 2019-08-23 22:50 | Emergency (ER) | payer MEDICARE, MEDICAID ==
[~2019-08-23] VITALS: Ht 162.6 cm; Wt 91.8 kg
[~2019-08-23 22:50] MED LIST changes: -CICL0.7739 EXT; -DIPH50CA PO; -DOCU100C16 PO; -HM V5000 PO; -HYLANDS LEG CRAMPS PO; -IRON240T PO; -LEVO112T2 PO; +MONT10TA10 PO; -MONT10TA4 PO; -MUCI600T31 PO; -iron PO
[2019-08-23 23:55] LABS: HEMATOCRIT 39.8 % (36.0-47.0); HEMOGLOBIN 13.2 g/dl (12.0-15.5); MEAN CORPUSCULAR HEMOGLOBIN 31.4 pg (27.0-33.0); MEAN CORPUSCULAR HGB CONC 33.2 g/dl (32.0-36.5); MEAN CORPUSCULAR VOLUME 94.8 fl (80.0-96.0); WHITE BLOOD COUNT 8.4 10^3/uL (4.0-10.0)
[2019-08-24] LABS: PLATELET COUNT, AUTOMATED 83 10^3/uL (150-450)
[2019-08-24] MEDS ORDERED: iron PO (00:12)
[2019-08-24] MEDS ORDERED: IRON240T PO (00:12)
[2019-08-24] MEDS ORDERED: HM V5000 PO (00:12)
[2019-08-24] MEDS ORDERED: LEVO112T2 PO (00:12)
[2019-08-24] MEDS ORDERED: MUCI600T31 PO (00:12)
[2019-08-24] MEDS ORDERED: DOCU100C16 PO (00:13)
[2019-08-24] MEDS ORDERED: DIPH50CA PO (00:13)
[2019-08-24] MEDS ORDERED: HYLANDS LEG CRAMPS PO (00:13)
[2019-08-24] MEDS ORDERED: CICL0.7739 EXT (00:13)
[2019-08-24 01:37] VITALS: BP 117/59
== END 2019-08-24 02:05 | disposition home or self-care (01) ==
LOC: M ED 22:50
DX: F44.9 Dissociative and conversion disorder, unspecified (principal); J45.909 Unspecified asthma, uncomplicated; F33.9 Major depressive disorder, recurrent, unspecified; E78.5 Hyperlipidemia, unspecified; K21.9 Gastro-esophageal reflux disease without esophagitis; G43.909 Migraine, unspecified, not intractable, without status migrainosus; Z79.899 Other long term (current) drug therapy; Z79.890 Hormone replacement therapy; Z79.82 Long term (current) use of aspirin; Z88.1 Allergy status to other antibiotic agents; Z88.8 Allergy status to other drugs, medicaments and biological substances; Z91.030 Bee allergy status; F17.210 Nicotine dependence, cigarettes, uncomplicated

== ENCOUNTER → 2019-08-27 | Outpatient (CLI) | payer MEDICARE, MEDICAID ==
[~2019-08-27] MED LIST changes: +CICL0.7739 EXT; +DIPH50CA PO; +DOCU100C16 PO; +HM V5000 PO; +HYLANDS LEG CRAMPS PO; +IRON240T PO; +LEVO112T2 PO; -MONT10TA10 PO; +MONT10TA4 PO; +MUCI600T31 PO; +iron PO
--- NOTE | 2019-08-27 16:40 | REP ---
REASON FOR EXAM: Followup. The lack of intravenous contrast decreases the sensitivity of the exam. Latest prior for comparison is 02/09/2019, obtained at [facility] with the next older examination being dated 06/16/2017. There appears to be some degree of thyromegaly, status quo. No mediastinal or hilar adenopathy has developed. There are no pleural or pericardial effusions. There is no evidence of significant change seen involving the imaged upper abdomen or imaged osseous structures. Evaluation of the lung cortes shows mild biapical pleuroparenchymal scarring, status quo. There is a tiny stable 4-mm sized pleural-based nodule in the left upper lobe. There is a small incidental calcified granuloma in the lingula. Minimal asymmetric densities are seen in the superior right middle lobe and in the medial basal segment of the right lower lobe, status quo. No new abnormal nodules, masses, or opacities have developed. IMPRESSION: 1. Stable calcified and noncalcified nodules, as described above without evidence of a new abnormal nodule. 2. Small patchy areas of fibrotic and/or chronic subsegmental atelectatic change in the right lung, as described above, also stable. Electronically Signed by Ulises Henao DO 08/27/2019 05:06 P
== END ==
LOC: M RAD 10:58
PROVIDERS: ATTEND Physician Assistant
DX: R91.8 Other nonspecific abnormal finding of lung field (principal)

== ENCOUNTER 2019-09-13 12:20 | Emergency (ER) | payer MEDICARE, MEDICAID ==
[~2019-09-13] VITALS: Ht 162.6 cm; Wt 94.2 kg
[2019-09-13] MEDS ORDERED: methylPREDNISolone 125MG 2ML VIAL IV ONE (13:45)
[2019-09-13 14:39] LABS: BASO % 0.3 % (0.0-1.0); EOS % 0.1 % (0.0-3.0); HEMATOCRIT 41.7 % (36.0-47.0); HEMOGLOBIN 13.7 g/dl (12.0-15.5); LYMPH # 1.7 10^3/uL (1.5-5.0); LYMPH % 21.5 % (24.0-44.0); MEAN CORPUSCULAR HEMOGLOBIN 31.7 pg (27.0-33.0); MEAN CORPUSCULAR HGB CONC 32.9 g/dl (32.0-36.5); MEAN CORPUSCULAR VOLUME 96.5 fl (80.0-96.0); MONO # 0.2 10^3/uL (0.0-0.8); MONO % 2.7 % (0.0-5.0); NEUTROPHILS # 5.9 10^3/uL (1.5-8.5); NEUTROPHILS % 74.4 % (36.0-66.0); PLATELET COUNT, AUTOMATED 124 10^3/uL (150-450); RED BLOOD COUNT 4.32 10^6/uL (4.00-5.40); WHITE BLOOD COUNT 7.9 10^3/uL (4.0-10.0)
[2019-09-13] MEDS: COMBIVENT RESPIMAT 100-20MCG INHALER 4GM INH SCH ×3 (14:45→15:26)
[2019-09-13 15:09] LABS: ALBUMIN 3.8 GM/DL (3.2-5.2); ALT/SGPT 21 U/L (12-78); BILIRUBIN,DIRECT < 0.1 MG/DL (0.0-0.2); BILIRUBIN,TOTAL 0.4 MG/DL (0.2-1.0); BLOOD UREA NITROGEN 8 MG/DL (7-18); CALCIUM LEVEL 8.7 MG/DL (8.5-10.1); CARBON DIOXIDE LEVEL 26 MEQ/L (21-32); CHLORIDE LEVEL 108 MEQ/L (98-107); CREATININE FOR GFR 0.84 MG/DL (0.55-1.30); GLOMERULAR FILTRATION RATE > 60.0 (>51); GLUCOSE, FASTING 151 MG/DL (70-100); NT-PRO BNP 128 PG/ML (<125); SODIUM LEVEL 139 MEQ/L (136-145); THYROXINE (T4) 8.9 UG/DL (4.5-12.0); TOTAL PROTEIN 7.5 GM/DL (6.4-8.2)
--- NOTE | 2019-09-13 15:29 | REP ---
CHEST, SINGLE VIEW: There is no evidence of acute infiltrate. No pleural effusion is seen. The heart is normal in size. The mediastinal silhouette is unremarkable. The visualized osseous structures are intact. IMPRESSION: No acute pulmonary disease. Electronically Signed by Preet Ware MD 09/13/2019 07:41 P
[2019-09-13 15:40] VITALS: O2SAT 95
[2019-09-13] MEDS ORDERED: IPRA0.00 NEB (15:49)
[2019-09-13 16:10] VITALS: BP 138/76
== END 2019-09-13 16:12 | disposition home or self-care (01) ==
LOC: M ED 12:20
DX: J44.1 Chronic obstructive pulmonary disease with (acute) exacerbation (principal); F17.200 Nicotine dependence, unspecified, uncomplicated; F32.9 Major depressive disorder, single episode, unspecified; K21.9 Gastro-esophageal reflux disease without esophagitis; E78.5 Hyperlipidemia, unspecified; Z79.51 Long term (current) use of inhaled steroids; Z79.52 Long term (current) use of systemic steroids; Z79.82 Long term (current) use of aspirin; Z88.8 Allergy status to other drugs, medicaments and biological substances; Z91.030 Bee allergy status
CPT/HCPCS: 36415; 71045; 80048; 80076; 83880; 84436; 84443; 85025; 87040; 94640; 94760; 96374; 99284; J2930

== ENCOUNTER 2020-02-02 13:12 | Emergency (ER) | payer MEDICARE, MEDICAID ==
[~2020-02-02 13:12] MED LIST changes: +IPRA0.00 NEB
[2020-02-02] MEDS ORDERED: COMBIVENT RESPIMAT 100-20MCG INHALER 4GM INH ONE (13:30)
[2020-02-02 13:50] LABS: BASO % 0.6 % (0.0-1.0); EOS # 0.1 10^3/uL (0.0-0.5); EOS % 1.7 % (0.0-3.0); HEMOGLOBIN 13.8 g/dl (12.0-15.5); LYMPH # 2.6 10^3/uL (1.5-5.0); LYMPH % 36.8 % (24.0-44.0); MEAN CORPUSCULAR HEMOGLOBIN 31.7 pg (27.0-33.0); MEAN CORPUSCULAR HGB CONC 33.7 g/dl (32.0-36.5); MONO # 0.4 10^3/uL (0.0-0.8); MONO % 5.7 % (0.0-5.0); NEUTROPHILS # 3.8 10^3/uL (1.5-8.5); NEUTROPHILS % 54.8 % (36.0-66.0); RED BLOOD COUNT 4.36 10^6/uL (4.00-5.40)
[2020-02-02 14:02] LABS: INR 0.91; PROTHROMBIN TIME 12.4 SECONDS (12.5-14.3)
[2020-02-02 14:03] LABS: PARTIAL THROMBOPLASTIN TIME 25.8 SECONDS (24.2-38.5)
--- NOTE | 2020-02-02 14:05 | REP ---
INDICATION: CHEST PAIN. COMPARISON: Comparison chest x-ray September 13, 2019.. TECHNIQUE: Sitting AP portable exam. FINDINGS: Monitoring electrodes are seen. The current radiograph is exposed at a somewhat lesser level of inspiration. There is some crowding of the bronchovascular markings as a result. No definite focal infiltrate. Pleural angles are sharp. Heart is not felt to be enlarged. IMPRESSION: Relatively low level of inspiration. Otherwise no acute disease. No acute infiltrate. <Electronically signed by Bhupinder Martin > 02/02/20 4501
[2020-02-02 14:09] LABS: ABG BASE EXCESS 0.9 (-2.0-2.0); ABG HCO3 24.2 MEQ/L (22.0-26.0); ABG PARTIAL PRESSURE CO2 34.7 mmHg (35.0-45.0); ABG PARTIAL PRESSURE O2 74.7 mmHg (75.0-100.0); ABG STANDARD HCO3 25.2 MEQ/L (22.0-26.0); ABG TOTAL CO2 25.2 MEQ/L (22.0-29.0); ABG pH (ARTERIAL) 7.461 UNITS (7.350-7.450)
[2020-02-02 14:17] LABS: ALBUMIN 3.4 GM/DL (3.2-5.2); ALT/SGPT 19 U/L (12-78); BILIRUBIN,DIRECT < 0.1 MG/DL (0.0-0.2); BILIRUBIN,TOTAL 0.3 MG/DL (0.2-1.0); BLOOD UREA NITROGEN 12 MG/DL (7-18); CALCIUM LEVEL 8.6 MG/DL (8.5-10.1); CARBON DIOXIDE LEVEL 27 MEQ/L (21-32); CHLORIDE LEVEL 106 MEQ/L (98-107); CK-MB VALUE MASS 1.4 NG/ML (<3.6); CPK CREATINE PHOSPHOKINASE 134 U/L (26-192); CREATININE FOR GFR 0.67 MG/DL (0.55-1.30); FREE T4 1.01 NG/DL (0.76-1.46); GLOMERULAR FILTRATION RATE > 60.0 (>51); GLUCOSE, FASTING 86 MG/DL (70-100); LIPASE 176 U/L (73-393); MB/CK RELATIVE INDEX 1.04 (< OR =4); NT-PRO BNP 123 PG/ML (<125); POTASSIUM SERUM 3.9 MEQ/L (3.5-5.1); SODIUM LEVEL 139 MEQ/L (136-145); TOTAL PROTEIN 7.2 GM/DL (6.4-8.2); TROPONIN I < 0.02 NG/ML (< 0.10)
[2020-02-02 14:28] LABS: PLATELET COUNT, AUTOMATED 85 10^3/uL (150-450)
[2020-02-02] MEDS ORDERED: IPRATROPIUM 0.5MG/ALBUTEROL 2.5MG INH SOL UD 3ML (DUONEB) NEB ONE ×2 (14:45→15:30)
[2020-02-02] MEDS ORDERED: ISOVUE-370 76% 100ML VIAL As Ordered ONE (14:59)
--- NOTE | 2020-02-02 15:36 | REP ---
INDICATION: SOB, hypoxia. COMPARISON: CT 08/27/2019, portable chest 02/02/2020 TECHNIQUE: CT angiogram chest performed following the intravenous administration of 75 cc of Isovue 370. Sagittal and coronal reconstruction images are performed. FINDINGS: Lungs: A few subtle areas of hazy ground-glass density in lower lung zones bilaterally. Some curvilinear fibro atelectatic change in the medial segment of the right middle lobe is present as a new finding. No dense consolidation, parenchymal mass or pulmonary nodules. No pleural thickening, calcified pleural plaque, effusion or other significant finding Mediastinum: No adenopathy. Pulmonary arteries: No evidence of pulmonary embolism. Dilcia: No adenopathy or mass. Axilla: No adenopathy in the axilla or supraclavicular region. Pleura: No effusion. Heart: Not enlarged. Thoracic aorta: No aneurysm or dissection. Upper abdominal structures: Have portion of liver and spleen included show no focal lesion adrenal glands are normal upper poles of kidneys intact prior cholecystectomy noted. The pancreas was unremarkable. No hiatal hernia. Visualized osseous structures: Unremarkable. IMPRESSION: No CT evidence of pulmonary thromboembolism. Some medial segment right middle lobe curvilinear fibro atelectatic change and some scattered areas of ground-glass hazy opacity in both lower lung zones that may reflect some minor patchy atelectasis but no acute infiltrate, effusion cardiomegaly or edema. No dense consolidation or mass. <Electronically signed by Cayden Martinez > 02/02/20 [id number]
[2020-02-02 16:01] VITALS: BP 128/61
[2020-02-02 16:36] VITALS: O2SAT 95
[2020-02-02] MEDS ORDERED: PRED20TA PO (16:42)
--- NOTE | 2020-02-03 18:53 | ECGEPIP ---
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
== END 2020-02-02 17:06 | disposition left against medical advice (07) ==
LOC: M ED 13:12 → EDBD 13:12 → M ED 17:06
DX: J44.1 Chronic obstructive pulmonary disease with (acute) exacerbation (principal); R09.81 Nasal congestion; Z53.9 Procedure and treatment not carried out, unspecified reason; G43.909 Migraine, unspecified, not intractable, without status migrainosus; E78.5 Hyperlipidemia, unspecified; G47.33 Obstructive sleep apnea (adult) (pediatric); K21.9 Gastro-esophageal reflux disease without esophagitis; F17.200 Nicotine dependence, unspecified, uncomplicated; Z88.1 Allergy status to other antibiotic agents; Z88.8 Allergy status to other drugs, medicaments and biological substances; Z91.030 Bee allergy status; Z79.82 Long term (current) use of aspirin; Z79.899 Other long term (current) drug therapy
CPT/HCPCS: 36415; 36600; 71045; 71275; 80048; 80076; 82550; 82553; 82803; 83690; 83880; 84439; 84443; 84484; 85025; 85049; 85055; 85610; 85730; 87486; 87581; 87633; 87798; 93005; 93041; 94640; 94760; 99285; Q9967

== ENCOUNTER 2020-03-24 15:12 | Emergency (ER) | payer MEDICARE, MEDICAID ==
[~2020-03-24] VITALS: Ht 162.6 cm; Wt 102.0 kg
[~2020-03-24 15:12] MED LIST changes: -MONT10TA4 PO; +MONT5TAB2 PO; +PRED20TA PO
[2020-03-24 16:24] VITALS: BP 127/83
== END 2020-03-24 16:23 | disposition home or self-care (01) ==
LOC: M ED 15:12
DX: R22.31 Localized swelling, mass and lump, right upper limb (principal); I10 Essential (primary) hypertension; Z88.1 Allergy status to other antibiotic agents; Z88.8 Allergy status to other drugs, medicaments and biological substances; Z79.899 Other long term (current) drug therapy

== ENCOUNTER → 2020-04-26 | Outpatient (CLI) | payer MEDICARE, MEDICAID ==
[~2020-04-26] MED LIST changes: +MONT10TA10 PO; -MONT5TAB2 PO
--- NOTE | 2020-04-26 14:30 | REP ---
INDICATION: POSTMENOPAUSAL BLEEDING. COMPARISON: None. TECHNIQUE: Transabdominal and transvaginal scanning were performed. FINDINGS: Uterine dimensions are normal at 6.3 x 3.0 x 3.5 cm. Endometrial echo is 0.4 cm thick and centrally placed. No free fluid is seen in the cul-de-sac. Visualized bladder carmichael are smooth. There is a hypoechoic area in the fundus of the uterus 1.7 x 1.9 x 1.2 cm in diameter. This is consistent with a small fibroid. The right ovary has dimensions of 2.2 x 1.9 x 1.8 cm. It's Doppler flow is normal with a resistive index of . The left ovary could not be seen transabdominally or transvaginally. No left adnexal mass, cyst or free fluid is seen.. IMPRESSION: Probable small fundal fibroid, 1.9 cm in greatest diameter. Otherwise negative pelvic sonography. Left ovary not directly visualized.. <Electronically signed by Bhupinder Martin > 04/26/20 [id number]
== END ==
LOC: M RAD 10:23
PROVIDERS: ATTEND Physician Assistant
DX: N95.0 Postmenopausal bleeding (principal)

== ENCOUNTER → 2020-06-22 | Outpatient (CLI) | payer MEDICARE, MEDICAID ==
[~2020-06-22] MED LIST changes: +ESTR62CR PV; +INCR1INH IN; +PROAAER10 INH
[2020-06-22 08:55] LABS: AMORPHOUS SEDIMENT SMALL (NEGATIVE); APPEARANCE, URINE CLOUDY (CLEAR); BACTERIA, URINE AUTO 1+ (NEGATIVE); BASO % 0.5 % (0.0-1.0); BILIRUBIN, URINE AUTO NEGATIVE (NEGATIVE); BLOOD, URINE BLOOD 1+ (NEGATIVE); COLOR, URINE YELLOW (YELLOW); EOS # 0.1 10^3/uL (0.0-0.5); EOS % 2.1 % (0.0-3.0); GLUCOSE, URINE (UA) AUTO NEGATIVE (NEGATIVE); HEMATOCRIT 39.9 % (36.0-47.0); HEMOGLOBIN 12.8 g/dl (12.0-15.5); KETONE, URINE AUTO NEGATIVE (NEGATIVE); LEUKOCYTE ESTERASE, URINE AUTO 3+ (NEGATIVE); LYMPH # 1.9 10^3/uL (1.5-5.0); LYMPH % 32.5 % (24.0-44.0); MEAN CORPUSCULAR HEMOGLOBIN 30.5 pg (27.0-33.0); MEAN CORPUSCULAR HGB CONC 32.1 g/dl (32.0-36.5); MEAN CORPUSCULAR VOLUME 95.2 fl (80.0-96.0); MONO # 0.5 10^3/uL (0.0-0.8); MONO % 8.1 % (2.0-8.0); MUCUS, URINE SMALL (NEGATIVE); NEUTROPHILS # 3.2 10^3/uL (1.5-8.5); NEUTROPHILS % 56.3 % (36.0-66.0); NITRITE, URINE AUTO NEGATIVE (NEGATIVE); PROTEIN, URINE AUTO NEGATIVE (NEGATIVE); RBC, URINE AUTO 47 /HPF (0-3); RED BLOOD COUNT 4.19 10^6/uL (4.00-5.40); SPECIFIC GRAVITY URINE AUTO 1.011 (1.002-1.035); SQUAMOUS EPITHELIAL CELL UR AU 21 /HPF (0-6); UROBILINOGEN, URINE AUTO 0.2 mg/dL (0.0-2.0); WBC, URINE AUTO 26 /HPF (0-3); WHITE BLOOD COUNT 5.7 10^3/uL (4.0-10.0)
[2020-06-22 08:57] LABS: PLATELET COUNT, AUTOMATED 89 10^3/uL (150-450)
[2020-06-22 09:24] LABS: ALBUMIN 3.3 GM/DL (3.2-5.2); ALT/SGPT 26 U/L (12-78); BILIRUBIN,TOTAL 0.3 MG/DL (0.2-1.0); BLOOD UREA NITROGEN 8 MG/DL (7-18); CALCIUM LEVEL 8.8 MG/DL (8.5-10.1); CARBON DIOXIDE LEVEL 28 MEQ/L (21-32); CHLORIDE LEVEL 110 MEQ/L (98-107); CHOLESTEROL LEVEL 183 MG/DL (<200); CHOLESTEROL RISK RATIO 4.357 (<5); CPK CREATINE PHOSPHOKINASE 89 U/L (26-192); CREATININE FOR GFR 0.72 MG/DL (0.55-1.30); FERRITIN 53 NG/ML (8-252); FREE T4 0.88 NG/DL (0.76-1.46); GLOMERULAR FILTRATION RATE > 60.0 (>51); GLUCOSE, FASTING 84 MG/DL (70-100); HDL CHOLESTEROL 42 MG/DL (>40); IRON (FE) 61 UG/DL (50-170); LDL CHOLESTEROL 123 MG/DL (<100); NON-HDL-C 141 MG/DL; PERCENT SATURATION 21.7 % (13.2-45.0); POTASSIUM SERUM 4.1 MEQ/L (3.5-5.1); SODIUM LEVEL 144 MEQ/L (136-145); TOTAL IRON BINDING CAPACITY 281 UG/DL (250-450); TOTAL PROTEIN 6.4 GM/DL (6.4-8.2); TRIGLYCERIDES LEVEL 92 MG/DL (<150)
[2020-06-22 09:25] LABS: VITAMIN B12 LEVEL 1207 PG/ML (247-911)
[2020-06-22 09:26] LABS: FOLATE > 24.0 NG/ML (>5.4)
[2020-06-23 10:08] LABS: CREATININE, URINE 87.6 mg/dL (20.0-300.0)
== END ==
LOC: M LAB 07:29
PROVIDERS: ATTEND Family Medicine
DX: M50.30 Other cervical disc degeneration, unspecified cervical region (principal); G89.4 Chronic pain syndrome; F33.9 Major depressive disorder, recurrent, unspecified; G25.81 Restless legs syndrome; E78.5 Hyperlipidemia, unspecified; F17.210 Nicotine dependence, cigarettes, uncomplicated

== ENCOUNTER → 2020-06-26 | Outpatient (CLI) | payer MEDICARE, MEDICAID ==
--- NOTE | 2020-06-26 11:38 | REP ---
INDICATION: LT WRIST PAIN ? TFCC , TENDON TEAR DRUJ COMPARISON: None. TECHNIQUE: AP, lateral, bilateral oblique views left wrist. FINDINGS: The carpal bones, surrounding osseous structures, soft tissues, and joint spaces are normal. No significant degenerative changes are appreciated. There is no evidence for acute fracture or dislocation. No subcutaneous emphysema or radiodense foreign body. IMPRESSION: Normal age-appropriate left wrist series. <Electronically signed by Juan David Manzano > 06/26/20 [id number]
--- NOTE | 2020-06-26 13:31 | REP ---
INDICATION: LT WRIST PAIN ? TFCC , TENDON TEAR DRUJ. COMPARISON: Radiographs 06/26/2020. TECHNIQUE: Multiple sequences obtained in the axial, coronal and sagittal planes. FINDINGS: Triangular fibrocartilage complex:No evidence of tear. Scapholunate and lunatotriquetral ligaments: Intact. Flexor and extensor tendons: Intact. No tenosynovitis. Carpal tunnel region: No significant abnormality. No abnormal signal in median nerve. No ganglion cyst is seen. Joint fluid: No effusion. Distal radioulnar joint: No significant fluid present. Bone marrow: No edema or occult fracture. IMPRESSION: Essentially negative MRI right wrist. Further evaluation may be made with MR arthrogram to rule out occult TFCC tear. <Electronically signed by Preet Ware > 06/26/20 [id number]
== END ==
LOC: M RAD 10:59
PROVIDERS: ATTEND Orthopaedic Surgery
DX: M25.532 Pain in left wrist (principal)

== ENCOUNTER → 2020-08-17 | Outpatient (CLI) | payer MEDICARE, MEDICAID ==
--- NOTE | 2020-08-17 11:11 | REPMRS ---
Patient History The patient states she had a clinical breast exam in May 2020. Patient is postmenopausal. Family history of breast cancer and endometrial cancer in mother. Taking estrogen for 2 years 6 months. Patient states no breast complaints. Patient has signed the MRS history sheet. Digital Woman Screen Mammo: August 17, 2020 - Exam #: [id number] Bilateral CC and MLO view(s) were taken. Technologist: Ana Sanders, Technologist Prior study comparison: August 17, 2019, bilateral digital woman screen mammo performed at [facility]. July 15, 2018, bilateral digital mammo screening bilat, performed at [facility]. November 03, 2015, digital woman screen mammo performed at [facility]. FINDINGS: There are scattered fibroglandular densities. The Volpara volumetric breast density category is:B. There has been no change in the appearance of the mammogram from the prior studies. There is a mild amount of scattered fibroglandular density which is fairly symmetric. There is no interval development of dominant mass, architectural distortion, or grouped microcalcification suggestive of malignancy. 3-D tomosynthesis shows no additional findings. Assessment: BI-RADS/ACR category 1 mammogram. Negative Mammogram. Recommendation Routine screening mammogram of both breasts in 1 year (for women over age 40). This patient's [facility] Lifetime Breast Cancer Risk is estimated at 12.8 %. This mammogram was interpreted with the aid of an FDA-approved computer-aided dectection system. Electronically Signed By: Bhupinder Martin MD 08/17/20 1111
== END ==
LOC: M WHC 10:22
PROVIDERS: ATTEND Advanced Practice Midwife
DX: Z12.31 Encounter for screening mammogram for malignant neoplasm of breast (principal); Z80.3 Family history of malignant neoplasm of breast; Z80.49 Family history of malignant neoplasm of other genital organs

== ENCOUNTER → 2020-10-02 | Outpatient (REF) | payer MEDICARE, MEDICAID, OTHER ==
[~2020-10-02] MED LIST changes: +OMEP40CA4 PO; -OMEP40CA97 PO
== END ==
LOC: M SFHCWAGY 15:21
PROVIDERS: ATTEND Specialist
DX: Z01.419 Encounter for gynecological examination (general) (routine) without abnormal findings (principal); R87.618 Other abnormal cytological findings on specimens from cervix uteri
CPT/HCPCS: 87624; G0123; G0463

== ENCOUNTER → 2020-10-12 | Outpatient (CLI) | payer MEDICARE, MEDICAID ==
[2020-10-12 10:32] LABS: APPEARANCE, URINE CLOUDY (CLEAR); BACTERIA, URINE AUTO NEGATIVE (NEGATIVE); BILIRUBIN, URINE AUTO NEGATIVE (NEGATIVE); BLOOD, URINE BLOOD NEGATIVE (NEGATIVE); COLOR, URINE AMBER (YELLOW); GLUCOSE, URINE (UA) AUTO NEGATIVE (NEGATIVE); KETONE, URINE AUTO TRACE mg/dL (NEGATIVE); LEUKOCYTE ESTERASE, URINE AUTO 1+ (NEGATIVE); MUCUS, URINE SMALL (NEGATIVE); NITRITE, URINE AUTO NEGATIVE (NEGATIVE); PROTEIN, URINE AUTO 1+ mg/dL (NEGATIVE); RBC, URINE AUTO 2 /HPF (0-3); SPECIFIC GRAVITY URINE AUTO 1.028 (1.002-1.035); SQUAMOUS EPITHELIAL CELL UR AU 49 /HPF (0-6); WBC, URINE AUTO 4 /HPF (0-3)
[2020-10-12 10:33] LABS: BASO % 0.5 % (0.0-1.0); EOS # 0.1 10^3/uL (0.0-0.5); EOS % 1.9 % (0.0-3.0); HEMATOCRIT 43.6 % (36.0-47.0); HEMOGLOBIN 14.4 g/dl (12.0-15.5); LYMPH # 2.9 10^3/uL (1.5-5.0); LYMPH % 37.7 % (24.0-44.0); MEAN CORPUSCULAR HEMOGLOBIN 31.7 pg (27.0-33.0); MONO # 0.4 10^3/uL (0.0-0.8); MONO % 4.8 % (2.0-8.0); NEUTROPHILS # 4.1 10^3/uL (1.5-8.5); NEUTROPHILS % 54.7 % (36.0-66.0); PLATELET COUNT, AUTOMATED 100 10^3/uL (150-450); RED BLOOD COUNT 4.54 10^6/uL (4.00-5.40); WHITE BLOOD COUNT 7.6 10^3/uL (4.0-10.0)
[2020-10-12 11:08] LABS: ALBUMIN 3.6 GM/DL (3.2-5.2); ALT/SGPT 30 U/L (12-78); BILIRUBIN,TOTAL 0.3 MG/DL (0.2-1.0); BLOOD UREA NITROGEN 9 MG/DL (7-18); CARBON DIOXIDE LEVEL 30 MEQ/L (21-32); CHLORIDE LEVEL 110 MEQ/L (98-107); CHOLESTEROL LEVEL 130 MG/DL (<200); CHOLESTEROL RISK RATIO 2.241 (<5); CREATININE FOR GFR 0.72 MG/DL (0.55-1.30); FREE T4 0.99 NG/DL (0.76-1.46); GLOMERULAR FILTRATION RATE > 60.0 (>45); GLUCOSE, FASTING 112 MG/DL (70-100); HDL CHOLESTEROL 58 MG/DL (>40); LDL CHOLESTEROL 63 MG/DL (<100); NON-HDL-C 72 MG/DL; SODIUM LEVEL 143 MEQ/L (136-145); TOTAL PROTEIN 6.6 GM/DL (6.4-8.2); TRIGLYCERIDES LEVEL 45 MG/DL (<150)
[2020-10-12 11:22] LABS: VITAMIN B12 LEVEL 777 PG/ML (247-911)
== END ==
LOC: M PLALAB 08:02
PROVIDERS: ATTEND Family Medicine
DX: G89.4 Chronic pain syndrome (principal); F33.9 Major depressive disorder, recurrent, unspecified; E78.5 Hyperlipidemia, unspecified; E03.9 Hypothyroidism, unspecified

== ENCOUNTER → 2020-12-27 | Outpatient (CLI) | payer MEDICARE, MEDICAID ==
[~2020-12-27] MED LIST changes: +ISOVUE-300 61% 50ML VIAL As Ordered ONE; +PROHANCE 279.3MG/ML 5ML VIAL As Ordered ONE
--- NOTE | 2020-12-27 09:50 | REP ---
INDICATION: LT WRIST PAIN. COMPARISON: Standard wrist MRI of 06/26/2020 TECHNIQUE: Pre and post contrast 3T MRI of the left wrist with MRI arthrogram was performed utilizing various sequences. FINDINGS: The triangular fibrocartilage complex is intact. The pre joint injection images show a tiny amount of fluid in the distal radioulnar joint, however, after the intra-articular injection no increased amount of fluid has developed. Linear hyper signal changes are seen in the scapholunate and lunatotriquetral ligaments. In addition, fluid is seen accumulating distal to the lunatotriquetral ligament pooling between the lunate and triquetral. A tiny amount of injected fluid appears to have gathered within the scapholunate ligament, however, no discernible fluid collection is seen just distal to the ligament. IMPRESSION: 1. There is evidence of a lunatotriquetral ligament tear. 2. There is evidence of a minimal tear of the scapholunate ligament. 3. There is no evidence of a triangular fibrocartilage complex tear. <Electronically signed by Ulises Henao > 12/27/20 0946
--- NOTE | 2020-12-27 17:06 | REP ---
INDICATION: LT WRIST PAIN. COMPARISON: None. TECHNIQUE: The procedure was performed under the direct supervision of Dr. Martin. The images were reviewed with Dr. Martin. The benefits and risks including but not limited to pain infection bleeding and anaphylaxis were explained to the patient and informed consent was obtained. The left radioscaphoid joint space was localized using fluoroscopic guidance. The skin was prepped and draped in a sterile fashion. 1% lidocaine was used as a local anesthetic. Using fluoroscopic guidance a 25 gauge needle was inserted and advanced into the joint. 3 mL of a solution containing 5 mL of Isovue 300 and 5 mL of a solution containing 20 mL of sterile saline and 0.15 mL of ProHance was injected into the joint space. Spot films obtained during injection show filling of the radial carpal row. The scapholunate and lunatotriquetral ligaments appear intact. The triangular fibrocartilage complex appears intact. The needle was removed and the patient was taken to MRI for postprocedural imaging. The patient tolerated the procedure well and there were no immediate complications. 0.1 minutes of fluoroscopy time was utilized for this procedure. FINDINGS: None IMPRESSION: Fluoro guidance for left wrist MRI arthrogram injection. <Electronically signed by Brian Reid > 12/27/20 1621 <Electronically signed by Bhupinder Martin > 12/27/20 [id number]
== END ==
LOC: M RADPRO 06:49
PROVIDERS: ATTEND Nurse Practitioner Family
DX: R93.7 Abnormal findings on diagnostic imaging of other parts of musculoskeletal system (principal); M25.532 Pain in left wrist
CPT/HCPCS: 25246; 73223; 77002; A9576; Q9967

== ENCOUNTER → 2021-02-01 | Outpatient (CLI) | payer MEDICARE, MEDICAID ==
[~2021-02-01] MED LIST changes: -ISOVUE-300 61% 50ML VIAL As Ordered ONE; -PROHANCE 279.3MG/ML 5ML VIAL As Ordered ONE
--- NOTE | 2021-02-01 10:13 | REP ---
INDICATION: ABN FINDING OF LUNG. COMPARISON: CTA and AP chest 02/02/2020, CT 01/30/2018. TECHNIQUE: Noncontrast scanning through the chest with coronal and sagittal reconstructions. FINDINGS: Lung cortes are well inflated. There is clearing of the hazy ground-glass opacities in the lower lung zones on the previous study. There is no pleural effusion, calcified pleural plaque, pleural based mass or acute infiltrate. There is a 3 mm nodule on image 28 mid axillary line in the left upper lobe. In retrospect this is unchanged. Seen back to 2019. There are no new nodules or other significant lung findings. Few scattered cylindrical bronchiectatic changes are seen. Heart is not enlarged. There is no pericardial thickening or effusion. I see no hiatal hernia. No pathologic sized mediastinal, hilar, axillary or supraclavicular adenopathy. Bone windows show the spine, its posterior elements, sternum, manubrium, clavicles, shoulders and visualized ribs all grossly intact. No acute finding in the visualized portions of liver and spleen on this limited upper abdominal field of view. Clips from prior cholecystectomy. Adrenal glands normal. Pancreas intact. Upper poles kidneys intact. IMPRESSION: 1. Negative CT chest for acute finding. The ground-glass opacities and atelectatic change in the previous CT have resolved and a couple of tiny up pleural based nodules are again seen dating back to 2019, stable. No new or acute finding. <Electronically signed by Cayden Martinze > 02/01/21 0359
== END ==
LOC: M RAD 09:32
PROVIDERS: ATTEND Physician Assistant
DX: R91.8 Other nonspecific abnormal finding of lung field (principal); J45.20 Mild intermittent asthma, uncomplicated; F17.218 Nicotine dependence, cigarettes, with other nicotine-induced disorders

== ENCOUNTER → 2021-09-20 | Outpatient (CLI) | payer MEDICARE, MEDICAID ==
[~2021-09-20] MED LIST changes: +B-12100020 PO; -MOME50SP; -MONT10TA10 PO; +MONT10TA97 PO; +NASO50SP3
[2021-09-20 13:12] LABS: BASO % 0.4 % (0.0-1.0); EOS # 0.1 10^3/uL (0.0-0.5); EOS % 1.4 % (0.0-3.0); HEMATOCRIT 43.3 % (36.0-47.0); HEMOGLOBIN 14.7 g/dl (12.0-15.5); LYMPH # 3.6 10^3/uL (1.5-5.0); MEAN CORPUSCULAR HEMOGLOBIN 32.7 pg (27.0-33.0); MEAN CORPUSCULAR HGB CONC 33.9 g/dl (32.0-36.5); MEAN CORPUSCULAR VOLUME 96.2 fl (80.0-96.0); MONO # 0.4 10^3/uL (0.0-0.8); MONO % 5.2 % (2.0-8.0); NEUTROPHILS # 3.9 10^3/uL (1.5-8.5); NEUTROPHILS % 48.6 % (36.0-66.0); WHITE BLOOD COUNT 8.1 10^3/uL (4.0-10.0)
[2021-09-20 13:14] LABS: PLATELET COUNT, AUTOMATED 79 10^3/uL (150-450)
[2021-09-20 13:43] LABS: ALT/SGPT 18 U/L (12-78); BILIRUBIN,TOTAL 0.4 MG/DL (0.2-1.0); BLOOD UREA NITROGEN 8 MG/DL (7-18); CARBON DIOXIDE LEVEL 27 MEQ/L (21-32); CHLORIDE LEVEL 110 MEQ/L (98-107); CREATININE FOR GFR 0.69 MG/DL (0.55-1.30); FREE T4 0.95 NG/DL (0.76-1.46); GLOMERULAR FILTRATION RATE > 60.0 (>45); GLUCOSE, FASTING 90 MG/DL (70-100); POTASSIUM SERUM 3.9 MEQ/L (3.5-5.1); SODIUM LEVEL 142 MEQ/L (136-145); TOTAL PROTEIN 7.2 GM/DL (6.4-8.2)
== END ==
LOC: M LAB 11:55
PROVIDERS: ATTEND Physician Assistant
DX: R53.83 Other fatigue (principal)

== ENCOUNTER → 2021-10-15 | Outpatient (CLI) | payer MEDICARE, MEDICAID | LOC: M PAIN 08:30 | PROVIDERS: ATTEND Nurse Practitioner Family | DX: Z53.21 Procedure and treatment not carried out due to patient leaving prior to being seen by health care provider (principal) ==

== ENCOUNTER → 2021-11-15 | Outpatient (CLI) | payer MEDICARE, MEDICAID ==
[~2021-11-15] MED LIST changes: +LEVO125T4
[2021-11-15 12:57] LABS: BASO % 0.5 % (0.0-1.0); EOS # 0.1 10^3/uL (0.0-0.5); EOS % 1.9 % (0.0-3.0); HEMATOCRIT 42.2 % (36.0-47.0); HEMOGLOBIN 14.2 g/dl (12.0-15.5); LYMPH # 3.5 10^3/uL (1.5-5.0); LYMPH % 47.9 % (24.0-44.0); MEAN CORPUSCULAR HEMOGLOBIN 32.3 pg (27.0-33.0); MEAN CORPUSCULAR HGB CONC 33.6 g/dl (32.0-36.5); MEAN CORPUSCULAR VOLUME 95.9 fl (80.0-96.0); MONO # 0.4 10^3/uL (0.0-0.8); MONO % 5.5 % (2.0-8.0); NEUTROPHILS # 3.2 10^3/uL (1.5-8.5); NEUTROPHILS % 43.9 % (36.0-66.0); WHITE BLOOD COUNT 7.4 10^3/uL (4.0-10.0)
[2021-11-15 13:05] LABS: PLATELET COUNT, AUTOMATED 71 10^3/uL (150-450)
[2021-11-15 13:33] LABS: ALBUMIN 3.6 GM/DL (3.2-5.2); ALT/SGPT 24 U/L (12-78); BILIRUBIN,TOTAL 0.4 MG/DL (0.2-1.0); BLOOD UREA NITROGEN 6 MG/DL (7-18); CALCIUM LEVEL 8.6 MG/DL (8.8-10.2); CARBON DIOXIDE LEVEL 30 MEQ/L (21-32); CHLORIDE LEVEL 109 MEQ/L (98-107); CHOLESTEROL LEVEL 149 MG/DL (<200); CREATININE FOR GFR 0.64 MG/DL (0.55-1.30); FREE T4 0.91 NG/DL (0.76-1.46); GLOMERULAR FILTRATION RATE > 60.0 (>45); GLUCOSE, FASTING 102 MG/DL (70-100); HDL CHOLESTEROL 49 MG/DL (>40); LDL CHOLESTEROL 89 MG/DL (<100); NON-HDL-C 100 MG/DL; POTASSIUM SERUM 4.1 MEQ/L (3.5-5.1); SODIUM LEVEL 142 MEQ/L (136-145); TOTAL PROTEIN 6.6 GM/DL (6.4-8.2); TRIGLYCERIDES LEVEL 56 MG/DL (<150)
[2021-11-15 13:56] LABS: VITAMIN B12 LEVEL 368 PG/ML (247-911)
== END ==
LOC: M LAB 11:06
PROVIDERS: ATTEND Family Medicine
DX: M50.30 Other cervical disc degeneration, unspecified cervical region (principal); G89.4 Chronic pain syndrome; F33.9 Major depressive disorder, recurrent, unspecified; E03.9 Hypothyroidism, unspecified

== ENCOUNTER → 2022-01-09 | Outpatient (CLI) | payer MEDICARE, MEDICAID | LOC: M PAIN 09:00 | PROVIDERS: ATTEND Anesthesiology | DX: M25.532 Pain in left wrist (principal); G89.29 Other chronic pain; S63.8X2A Sprain of other part of left wrist and hand, initial encounter; G25.81 Restless legs syndrome; G43.909 Migraine, unspecified, not intractable, without status migrainosus; G47.33 Obstructive sleep apnea (adult) (pediatric); E03.9 Hypothyroidism, unspecified; K21.9 Gastro-esophageal reflux disease without esophagitis; J44.9 Chronic obstructive pulmonary disease, unspecified; F17.210 Nicotine dependence, cigarettes, uncomplicated; Z86.59 Personal history of other mental and behavioral disorders; Z88.6 Allergy status to analgesic agent; Z88.8 Allergy status to other drugs, medicaments and biological substances; Z91.030 Bee allergy status; Z91.09 Other allergy status, other than to drugs and biological substances; Z79.51 Long term (current) use of inhaled steroids; Z79.82 Long term (current) use of aspirin; Z79.890 Hormone replacement therapy; Z79.899 Other long term (current) drug therapy; X58.XXXA Exposure to other specified factors, initial encounter; Y92.9 Unspecified place or not applicable; Y93.9 Activity, unspecified; Y99.9 Unspecified external cause status ==

== ENCOUNTER → 2022-02-26 | Outpatient (CLI) | payer MEDICARE, MEDICAID | LOC: M RAD 10:24 | PROVIDERS: ATTEND Physician Assistant | DX: Z12.2 Encounter for screening for malignant neoplasm of respiratory organs (principal); F17.218 Nicotine dependence, cigarettes, with other nicotine-induced disorders ==

== ENCOUNTER → 2022-04-10 | Outpatient (CLI) | payer MEDICARE, MEDICAID ==
[~2022-04-10] MED LIST changes: -CLAR2.5T PO; +DESL1TBM PO
== END ==
LOC: M PAIN 09:45
PROVIDERS: ATTEND Anesthesiology
DX: M25.532 Pain in left wrist (principal); M79.2 Neuralgia and neuritis, unspecified; G25.81 Restless legs syndrome; G43.909 Migraine, unspecified, not intractable, without status migrainosus; G47.33 Obstructive sleep apnea (adult) (pediatric); K21.9 Gastro-esophageal reflux disease without esophagitis; J44.9 Chronic obstructive pulmonary disease, unspecified; F03.90 Unspecified dementia, unspecified severity, without behavioral disturbance, psychotic disturbance, mood disturbance, and anxiety; E03.9 Hypothyroidism, unspecified; F17.210 Nicotine dependence, cigarettes, uncomplicated; Z86.59 Personal history of other mental and behavioral disorders; Z88.6 Allergy status to analgesic agent; Z88.8 Allergy status to other drugs, medicaments and biological substances; Z91.030 Bee allergy status; Z91.09 Other allergy status, other than to drugs and biological substances; Z79.51 Long term (current) use of inhaled steroids; Z79.82 Long term (current) use of aspirin; Z79.890 Hormone replacement therapy; Z79.899 Other long term (current) drug therapy

== ENCOUNTER → 2022-05-15 | Outpatient (CLI) | payer MEDICARE, MEDICAID ==
[~2022-05-15] MED LIST changes: +ALBU2TA PO; +LEVO137T2 PO
== END ==
LOC: M PAIN 11:30
PROVIDERS: ATTEND Anesthesiology
DX: M25.532 Pain in left wrist (principal); S63.8X2A Sprain of other part of left wrist and hand, initial encounter; G47.33 Obstructive sleep apnea (adult) (pediatric); G25.81 Restless legs syndrome; G43.909 Migraine, unspecified, not intractable, without status migrainosus; E03.9 Hypothyroidism, unspecified; J44.9 Chronic obstructive pulmonary disease, unspecified; F03.90 Unspecified dementia, unspecified severity, without behavioral disturbance, psychotic disturbance, mood disturbance, and anxiety; F17.210 Nicotine dependence, cigarettes, uncomplicated; Z86.59 Personal history of other mental and behavioral disorders; Z88.1 Allergy status to other antibiotic agents; Z88.6 Allergy status to analgesic agent; Z88.8 Allergy status to other drugs, medicaments and biological substances; Z91.030 Bee allergy status; Z91.09 Other allergy status, other than to drugs and biological substances; Z79.51 Long term (current) use of inhaled steroids; Z79.82 Long term (current) use of aspirin; Z79.890 Hormone replacement therapy; Z79.899 Other long term (current) drug therapy

== ENCOUNTER → 2022-05-30 | Outpatient (CLI) | payer MEDICARE, MEDICAID ==
[~2022-05-30] MED LIST changes: -ALBU2TA PO; +ALBU2TAB13 PO
[2022-05-30 09:11] LABS: BASO % 0.4 % (0.0-1.0); EOS # 0.1 10^3/uL (0.0-0.5); HEMATOCRIT 42.7 % (36.0-47.0); LYMPH # 3.1 10^3/uL (1.5-5.0); LYMPH % 44.6 % (24.0-44.0); MEAN CORPUSCULAR HEMOGLOBIN 31.2 pg (27.0-33.0); MEAN CORPUSCULAR HGB CONC 32.8 g/dl (32.0-36.5); MEAN CORPUSCULAR VOLUME 95.1 fl (80.0-96.0); MONO # 0.4 10^3/uL (0.0-0.8); MONO % 5.8 % (2.0-8.0); NEUTROPHILS # 3.3 10^3/uL (1.5-8.5); NEUTROPHILS % 47.1 % (36.0-66.0); PLATELET COUNT, AUTOMATED 87 10^3/uL (150-450); RED BLOOD COUNT 4.49 10^6/uL (4.00-5.40)
[2022-05-30 09:13] LABS: APPEARANCE, URINE CLEAR (CLEAR); BACTERIA, URINE AUTO NEGATIVE (NEGATIVE); BILIRUBIN, URINE AUTO NEGATIVE (NEGATIVE); BLOOD, URINE BLOOD NEGATIVE (NEGATIVE); COLOR, URINE YELLOW (YELLOW); GLUCOSE, URINE (UA) AUTO NEGATIVE (NEGATIVE); KETONE, URINE AUTO NEGATIVE (NEGATIVE); LEUKOCYTE ESTERASE, URINE AUTO NEGATIVE (NEGATIVE); NITRITE, URINE AUTO NEGATIVE (NEGATIVE); PROTEIN, URINE AUTO NEGATIVE (NEGATIVE); RBC, URINE AUTO 1 /HPF (0-3); SPECIFIC GRAVITY URINE AUTO 1.016 (1.002-1.035); SQUAMOUS EPITHELIAL CELL UR AU 3 /HPF (0-6); UROBILINOGEN, URINE AUTO 0.2 mg/dL (0.0-2.0); WBC, URINE AUTO 2 /HPF (0-3)
[2022-05-30 09:48] LABS: ALBUMIN 3.5 G/DL (3.2-5.2); ALKALINE PHOSPHATASE 65 U/L (46-116); ALT/SGPT 20 U/L (7.0-40); AST/SGOT 21 U/L (<34); BILIRUBIN,TOTAL 0.5 MG/DL (0.3-1.2); BLOOD UREA NITROGEN 9 MG/DL (9-23); CALCIUM LEVEL 8.6 MG/DL (8.3-10.6); CARBON DIOXIDE LEVEL 28 MMOL/L (20-31); CHLORIDE LEVEL 112 MMOL/L (98-107); CHOLESTEROL LEVEL 167 MG/DL (<200); CHOLESTEROL RISK RATIO 4.22 (<5); FREE T4 0.97 NG/DL (0.89-1.76); GLOMERULAR FILTRATION RATE > 60.0 (>45); GLUCOSE, FASTING 99 MG/DL (74-106); HDL CHOLESTEROL 39.5 MG/DL (>40); LDL CHOLESTEROL 104.1 MG/DL (<100); NON-HDL-C 127.5 MG/DL; SODIUM LEVEL 144 MMOL/L (136-145); THYROID STIMULATING HORMONE 2.799 uIU/ML (0.55-4.78); TOTAL PROTEIN 6.2 G/DL (5.7-8.2); TRIGLYCERIDES LEVEL 117 MG/DL (<150); VITAMIN B12 LEVEL 372 PG/ML (211-911)
== END ==
LOC: M LAB 08:01
PROVIDERS: ATTEND Family Medicine
DX: G89.4 Chronic pain syndrome (principal); F33.9 Major depressive disorder, recurrent, unspecified; E78.5 Hyperlipidemia, unspecified; E03.9 Hypothyroidism, unspecified

== ENCOUNTER → 2022-11-28 | Outpatient (CLI) | payer MEDICARE, MEDICAID ==
[~2022-11-28] MED LIST changes: +EZET10TA58 PO; +FLUT1BLS6; +FLUT50SP17; -FLUTISP; +MECL-86; +OMEG1CAP90 PO; +ONETAB35 PO; -ZETI10TA16 PO; +[UNRECOGNIZED DRUG - OTHER] OP
== END ==
LOC: M WHC 09:45
PROVIDERS: ATTEND Specialist
DX: Z12.31 Encounter for screening mammogram for malignant neoplasm of breast (principal)

== ENCOUNTER → 2022-11-28 | Outpatient (REF) | payer MEDICARE, MEDICAID | LOC: M PLALAB 10:48 | PROVIDERS: ATTEND Specialist | DX: Z12.4 Encounter for screening for malignant neoplasm of cervix (principal); A59.9 Trichomoniasis, unspecified | CPT/HCPCS: 87624; G0123 ==

== ENCOUNTER → 2022-12-02 | Outpatient (CLI) | payer MEDICARE, MEDICAID ==
[2022-12-02 08:10] LABS: APPEARANCE, URINE HAZY (CLEAR); BACTERIA, URINE AUTO 1+ (NEGATIVE); BILIRUBIN, URINE AUTO NEGATIVE (NEGATIVE); BLOOD, URINE BLOOD 1+ (NEGATIVE); COLOR, URINE YELLOW (YELLOW); GLUCOSE, URINE (UA) AUTO NEGATIVE (NEGATIVE); KETONE, URINE AUTO NEGATIVE (NEGATIVE); LEUKOCYTE ESTERASE, URINE AUTO 3+ (NEGATIVE); MUCUS, URINE SMALL (NEGATIVE); NITRITE, URINE AUTO NEGATIVE (NEGATIVE); PROTEIN, URINE AUTO NEGATIVE (NEGATIVE); RBC, URINE AUTO 27 /HPF (0-3); SPECIFIC GRAVITY URINE AUTO 1.013 (1.002-1.035); SQUAMOUS EPITHELIAL CELL UR AU 7 /HPF (0-6); UROBILINOGEN, URINE AUTO 0.2 mg/dL (0.0-2.0); WBC, URINE AUTO 49 /HPF (0-3)
[2022-12-02 08:20] LABS: BASO % 0.6 % (0.0-1.0); EOS # 0.2 10^3/uL (0.0-0.5); EOS % 2.5 % (0.0-3.0); HEMOGLOBIN 14.1 g/dl (12.0-15.5); LYMPH # 2.9 10^3/uL (1.5-5.0); LYMPH % 41.9 % (24.0-44.0); MEAN CORPUSCULAR HGB CONC 32.8 g/dl (32.0-36.5); MEAN CORPUSCULAR VOLUME 94.5 fl (80.0-96.0); MONO # 0.4 10^3/uL (0.0-0.8); MONO % 5.1 % (2.0-8.0); NEUTROPHILS # 3.4 10^3/uL (1.5-8.5); NEUTROPHILS % 49.6 % (36.0-66.0); PLATELET COUNT, AUTOMATED 100 10^3/uL (150-450); RED BLOOD COUNT 4.55 10^6/uL (4.00-5.40); WHITE BLOOD COUNT 6.9 10^3/uL (4.0-10.0)
[2022-12-02 09:04] LABS: ALBUMIN 3.3 G/DL (3.2-5.2); CARBON DIOXIDE LEVEL 30 MMOL/L (20-31); CHLORIDE LEVEL 109 MMOL/L (98-107); POTASSIUM SERUM 4.2 MMOL/L (3.5-5.1); SODIUM LEVEL 143 MMOL/L (136-145)
[2022-12-02 09:15] LABS: ALKALINE PHOSPHATASE 63 U/L (46-116); ALT/SGPT 17 U/L (7.0-40); AST/SGOT 10 U/L (<34); BILIRUBIN,TOTAL 0.3 MG/DL (0.3-1.2); BLOOD UREA NITROGEN 7 MG/DL (9-23); CALCIUM LEVEL 8.5 MG/DL (8.3-10.6); CHOLESTEROL LEVEL 198 MG/DL (<200); CREATININE FOR GFR 0.68 MG/DL (0.55-1.30); FREE T4 1.12 NG/DL (0.89-1.76); GLOMERULAR FILTRATION RATE > 60.0 (>45); GLUCOSE, FASTING 101 MG/DL (74-106); THYROID STIMULATING HORMONE 0.273 uIU/ML (0.55-4.78); TOTAL PROTEIN 6.1 G/DL (5.7-8.2); TRIGLYCERIDES LEVEL 109 MG/DL (<150); VITAMIN B12 LEVEL 421 PG/ML (211-911)
[2022-12-02 13:16] LABS: CHOLESTEROL RISK RATIO 4.87 (<5); HDL CHOLESTEROL 40.6 MG/DL (>40); LDL CHOLESTEROL 135.6 MG/DL (<100); NON-HDL-C 157.4 MG/DL
== END ==
LOC: M LAB 07:28
PROVIDERS: ATTEND Family Medicine
DX: M50.30 Other cervical disc degeneration, unspecified cervical region (principal); G89.4 Chronic pain syndrome; F33.9 Major depressive disorder, recurrent, unspecified; E78.5 Hyperlipidemia, unspecified; E03.9 Hypothyroidism, unspecified

== ENCOUNTER → 2022-12-06 | Outpatient (CLI) | payer MEDICARE, MEDICAID | LOC: M WHC 10:31 | PROVIDERS: ATTEND Specialist | DX: N95.0 Postmenopausal bleeding (principal) ==

== ENCOUNTER → 2023-04-15 | Outpatient (CLI) | payer MEDICARE, MEDICAID ==
[~2023-04-15] MED LIST changes: +BACL1TAB9 PO; +CITA40TA7 PO; +ESTR0.1C5 VG; -FLUT50SP17; +FLUTISP; +LEVO125T4 PO; +LORA-1041 PO; +OMEP40CA5 PO; +PRAM1TAB7 PO
[2023-04-15 09:06] LABS: BASO % 0.5 % (0.0-1.0); EOS # 0.1 10^3/uL (0.0-0.5); EOS % 1.9 % (0.0-3.0); HEMATOCRIT 43.3 % (36.0-47.0); HEMOGLOBIN 14.5 g/dl (12.0-15.5); LYMPH # 3.1 10^3/uL (1.5-5.0); LYMPH % 40.6 % (24.0-44.0); MEAN CORPUSCULAR HGB CONC 33.5 g/dl (32.0-36.5); MEAN CORPUSCULAR VOLUME 95.6 fl (80.0-96.0); MONO # 0.4 10^3/uL (0.0-0.8); MONO % 5.8 % (2.0-8.0); NEUTROPHILS # 3.8 10^3/uL (1.5-8.5); NEUTROPHILS % 50.9 % (36.0-66.0); PLATELET COUNT, AUTOMATED 110 10^3/uL (150-450); RED BLOOD COUNT 4.53 10^6/uL (4.00-5.40); WHITE BLOOD COUNT 7.5 10^3/uL (4.0-10.0)
[2023-04-15 09:35] LABS: ALBUMIN 3.5 G/DL (3.2-5.2); ALKALINE PHOSPHATASE 66 U/L (46-116); ALT/SGPT 17 U/L (7.0-40); AST/SGOT 15 U/L (<34); BILIRUBIN,TOTAL 0.3 MG/DL (0.3-1.2); BLOOD UREA NITROGEN 9 MG/DL (9-23); CALCIUM LEVEL 8.6 MG/DL (8.3-10.6); CARBON DIOXIDE LEVEL 30 MMOL/L (20-31); CHLORIDE LEVEL 113 MMOL/L (98-107); CHOLESTEROL LEVEL 189 MG/DL (<200); CHOLESTEROL RISK RATIO 5.43 (<5); CREATININE FOR GFR 0.71 MG/DL (0.55-1.30); GLOMERULAR FILTRATION RATE > 60.0 (>45); GLUCOSE, FASTING 95 MG/DL (74-106); HDL CHOLESTEROL 34.8 MG/DL (>40); LDL CHOLESTEROL 124.6 MG/DL (<100); NON-HDL-C 154.2 MG/DL; POTASSIUM SERUM 4.2 MMOL/L (3.5-5.1); SODIUM LEVEL 145 MMOL/L (136-145); TOTAL PROTEIN 6.3 G/DL (5.7-8.2); TRIGLYCERIDES LEVEL 148 MG/DL (<150)
[2023-04-15 09:36] LABS: FREE T4 1.25 NG/DL (0.89-1.76)
== END ==
LOC: M LAB 08:01
PROVIDERS: ATTEND Family Medicine
DX: G89.4 Chronic pain syndrome (principal); E78.5 Hyperlipidemia, unspecified; E03.9 Hypothyroidism, unspecified

== ENCOUNTER 2023-04-21 11:27 | Day surgery (SDC) | payer MEDICARE, MEDICAID ==
[~2023-04-21] VITALS: Ht 162.6 cm; Wt 83.6 kg
[~2023-04-21 11:27] MED LIST changes: +NS 1,000 ML IV ONE
[2023-04-21] MEDS ORDERED: propofoL 500 MG/50 ML VIAL As Ordered ONE (12:53)
[2023-04-21] MEDS ORDERED: fentaNYL 100 MCG/2 ML INJECTION As Ordered ONE (12:53)
[2023-04-21] MEDS ORDERED: LIDOCAINE 2% 100MG/5ML SDV (FOR ANES.) As Ordered ONE (12:53)
[2023-04-21 13:25] VITALS: TEMP 97.8
[2023-04-21 13:49] VITALS: BP 124/83; O2SAT 97
== END 2023-04-21 14:09 | disposition home or self-care (01) ==
LOC: M OPP 11:27
PROVIDERS: ATTEND Internal Medicine Gastroenterology
DX: D12.3 Benign neoplasm of transverse colon (principal); K57.30 Diverticulosis of large intestine without perforation or abscess without bleeding; K64.8 Other hemorrhoids; K92.1 Melena; R12 Heartburn; F17.200 Nicotine dependence, unspecified, uncomplicated; G47.30 Sleep apnea, unspecified; Z79.82 Long term (current) use of aspirin; Z79.890 Hormone replacement therapy; Z79.899 Other long term (current) drug therapy; Z88.1 Allergy status to other antibiotic agents; Z88.6 Allergy status to analgesic agent; Z88.8 Allergy status to other drugs, medicaments and biological substances; Z91.030 Bee allergy status
CPT/HCPCS: 43235; 45385; 88305; J3010

== ENCOUNTER → 2023-05-28 | Outpatient (CLI) | payer MEDICARE, MEDICAID ==
[~2023-05-28] MED LIST changes: +CLOB5CR TOP; +FLUT1BLS6 IH; +INCR1INH INH; -MECL-86; +MECL-86 PO; -NS 1,000 ML IV ONE; -PRAV20TA2; +PRAV20TA2 PO; +PROA1AER2 INH; +SYST0.6S OP
== END ==
LOC: M RAD 09:20
PROVIDERS: ATTEND Physician Assistant
DX: Z87.891 Personal history of nicotine dependence (principal)

== ENCOUNTER → 2023-10-15 | Outpatient (CLI) | payer MEDICARE, MEDICAID ==
[2023-10-15 09:15] LABS: APPEARANCE, URINE CLOUDY (CLEAR); BACTERIA, URINE AUTO NEGATIVE (NEGATIVE); BILIRUBIN, URINE AUTO NEGATIVE (NEGATIVE); BLOOD, URINE BLOOD 1+ (NEGATIVE); COLOR, URINE YELLOW (YELLOW); GLUCOSE, URINE (UA) AUTO NEGATIVE (NEGATIVE); KETONE, URINE AUTO NEGATIVE (NEGATIVE); LEUKOCYTE ESTERASE, URINE AUTO 3+ (NEGATIVE); MUCUS, URINE SMALL (NEGATIVE); NITRITE, URINE AUTO NEGATIVE (NEGATIVE); PROTEIN, URINE AUTO NEGATIVE (NEGATIVE); RBC, URINE AUTO 65 /HPF (0-3); SPECIFIC GRAVITY URINE AUTO 1.017 (1.002-1.035); SQUAMOUS EPITHELIAL CELL UR AU 7 /HPF (0-6); WBC, URINE AUTO 71 /HPF (0-3)
[2023-10-15 09:32] LABS: BASO % 0.6 % (0.0-1.0); EOS # 0.1 10^3/uL (0.0-0.5); HEMATOCRIT 45.1 % (36.0-47.0); HEMOGLOBIN 14.8 g/dl (12.0-15.5); LYMPH # 2.9 10^3/uL (1.5-5.0); LYMPH % 42.2 % (24.0-44.0); MEAN CORPUSCULAR HGB CONC 32.8 g/dl (32.0-36.5); MEAN CORPUSCULAR VOLUME 94.5 fl (80.0-96.0); MONO # 0.4 10^3/uL (0.0-0.8); MONO % 5.8 % (2.0-8.0); NEUTROPHILS # 3.4 10^3/uL (1.5-8.5); NEUTROPHILS % 49.1 % (36.0-66.0); PLATELET COUNT, AUTOMATED 114 10^3/uL (150-450); RED BLOOD COUNT 4.77 10^6/uL (4.00-5.40)
[2023-10-15 09:49] LABS: ALBUMIN 3.7 G/DL (3.2-5.2); ALKALINE PHOSPHATASE 67 U/L (46-116); ALT/SGPT 21 U/L (7.0-40); AST/SGOT 12 U/L (<34); BILIRUBIN,TOTAL 0.4 MG/DL (0.3-1.2); BLOOD UREA NITROGEN 9 MG/DL (9-23); CALCIUM LEVEL 9.1 MG/DL (8.3-10.6); CARBON DIOXIDE LEVEL 32 MMOL/L (20-31); CHLORIDE LEVEL 113 MMOL/L (98-107); CHOLESTEROL LEVEL 212 MG/DL (<200); CHOLESTEROL RISK RATIO 5.46 (<5); CREATININE FOR GFR 0.63 MG/DL (0.55-1.30); FREE T4 1.19 NG/DL (0.89-1.76); GLOMERULAR FILTRATION RATE > 60.0 (>45); GLUCOSE, FASTING 98 MG/DL (74-106); HDL CHOLESTEROL 38.8 MG/DL (>40); IRON (FE) 50 UG/DL (50-170); LDL CHOLESTEROL 155.6 MG/DL (<100); NON-HDL-C 173.2 MG/DL; PERCENT SATURATION 16.5 % (13.2-45.0); POTASSIUM SERUM 4.2 MMOL/L (3.5-5.1); SODIUM LEVEL 146 MMOL/L (136-145); THYROID STIMULATING HORMONE 0.427 uIU/ML (0.55-4.78); TOTAL IRON BINDING CAPACITY 303 UG/DL (250-425); TOTAL PROTEIN 6.3 G/DL (5.7-8.2); TRIGLYCERIDES LEVEL 88 MG/DL (<150)
[2023-10-15 09:50] LABS: FOLATE > 24.0 NG/ML (>5.4); TOTAL 25(OH) VITAMIN D 36.3 NG/ML (20.0-100.0); VITAMIN B12 LEVEL 484 PG/ML (211-911)
== END ==
LOC: M LAB 08:19
PROVIDERS: ATTEND Family Medicine
DX: G89.4 Chronic pain syndrome (principal); E78.5 Hyperlipidemia, unspecified; E03.9 Hypothyroidism, unspecified; D69.6 Thrombocytopenia, unspecified; M50.30 Other cervical disc degeneration, unspecified cervical region; R53.83 Other fatigue; Z79.899 Other long term (current) drug therapy

== ENCOUNTER → 2023-10-31 | Outpatient (CLI) | payer MEDICARE, MEDICAID | LOC: M RAD 09:26 | PROVIDERS: ATTEND Internal Medicine Hematology & Oncology | DX: D69.6 Thrombocytopenia, unspecified (principal); R16.2 Hepatomegaly with splenomegaly, not elsewhere classified; K76.0 Fatty (change of) liver, not elsewhere classified ==

== ENCOUNTER → 2023-12-15 | Outpatient (CLI) | payer MEDICARE, MEDICAID ==
[~2023-12-15] MED LIST changes: +FLUT1BLS8; +GABA-1490 PO; -GABA600T4 PO
== END ==
LOC: M WUC 13:39
PROVIDERS: ATTEND Nurse Practitioner Family
DX: M79.644 Pain in right finger(s) (principal)

== ENCOUNTER → 2023-12-17 | Outpatient (CLI) | payer MEDICARE, MEDICAID | LOC: M WHC 08:55 | PROVIDERS: ATTEND Specialist | DX: Z12.31 Encounter for screening mammogram for malignant neoplasm of breast (principal) ==

== ENCOUNTER → 2023-12-17 | Outpatient (REF) | payer MEDICARE, MEDICAID ==
[2023-12-19 16:47] LABS: HPV APTIMA Not Detected (Not Detected)
== END ==
LOC: M SFHCWAGY 13:15
PROVIDERS: ATTEND Specialist
DX: Z12.4 Encounter for screening for malignant neoplasm of cervix (principal)
CPT/HCPCS: 87624; G0123

== ENCOUNTER → 2023-12-21 | Outpatient (CLI) | payer MEDICARE, MEDICAID ==
[2023-12-21 09:12] LABS: BASO % 0.6 % (0.0-1.0); EOS # 0.2 10^3/uL (0.0-0.5); EOS % 2.3 % (0.0-3.0); HEMATOCRIT 43.2 % (36.0-47.0); HEMOGLOBIN 14.4 g/dl (12.0-15.5); LYMPH # 2.9 10^3/uL (1.5-5.0); LYMPH % 41.4 % (24.0-44.0); MEAN CORPUSCULAR HEMOGLOBIN 31.4 pg (27.0-33.0); MEAN CORPUSCULAR HGB CONC 33.3 g/dl (32.0-36.5); MEAN CORPUSCULAR VOLUME 94.3 fl (80.0-96.0); MONO # 0.4 10^3/uL (0.0-0.8); MONO % 5.9 % (2.0-8.0); NEUTROPHILS # 3.4 10^3/uL (1.5-8.5); NEUTROPHILS % 49.5 % (36.0-66.0); PLATELET COUNT, AUTOMATED 116 10^3/uL (150-450); RED BLOOD COUNT 4.58 10^6/uL (4.00-5.40)
[2023-12-21 09:32] LABS: TOTAL IRON BINDING CAPACITY 321 UG/DL (250-425)
[2023-12-21 09:33] LABS: ALBUMIN 3.7 G/DL (3.2-5.2); ALKALINE PHOSPHATASE 82 U/L (46-116); ALT/SGPT 21 U/L (7.0-40); AST/SGOT 15 U/L (<34); BILIRUBIN,TOTAL 0.2 MG/DL (0.3-1.2); BLOOD UREA NITROGEN 12 MG/DL (9-23); CALCIUM LEVEL 9.1 MG/DL (8.3-10.6); CARBON DIOXIDE LEVEL 27 MMOL/L (20-31); CHLORIDE LEVEL 114 MMOL/L (98-107); CHOLESTEROL LEVEL 157 MG/DL (<200); CREATININE FOR GFR 0.68 MG/DL (0.55-1.30); GLOMERULAR FILTRATION RATE > 60.0 (>45); GLUCOSE, FASTING 124 MG/DL (74-106); IRON (FE) 28 UG/DL (50-170); PERCENT SATURATION 8.7 % (13.2-45.0); SODIUM LEVEL 145 MMOL/L (136-145); TOTAL PROTEIN 6.5 G/DL (5.7-8.2); TRIGLYCERIDES LEVEL 186 MG/DL (<150)
[2023-12-21 09:34] LABS: FREE T4 1.58 NG/DL (0.89-1.76); VITAMIN B12 LEVEL 497 PG/ML (211-911)
[2023-12-21 09:35] LABS: FOLATE > 24.0 NG/ML (>5.4)
[2023-12-21 11:58] LABS: CHOLESTEROL RISK RATIO 4.23 (<5); HDL CHOLESTEROL 37.1 MG/DL (>40); LDL CHOLESTEROL 82.7 MG/DL (<100); NON-HDL-C 119.9 MG/DL
== END ==
LOC: M LAB 08:34
PROVIDERS: ATTEND Family Medicine
DX: G89.4 Chronic pain syndrome (principal); E78.5 Hyperlipidemia, unspecified; E03.9 Hypothyroidism, unspecified; D50.9 Iron deficiency anemia, unspecified

== ENCOUNTER → 2024-12-17 | Outpatient (REF) | payer MEDICARE, MEDICAID ==
[~2024-12-17] MED LIST changes: -DIPH50CA PO; +DIPH50CA31 PO; -PRAV20TA2 PO; +PRAV20TA78 PO; +THERTAB52 PO; +mega red
[2024-12-21 14:41] LABS: HPV APTIMA Not Detected (Not Detected)
== END ==
LOC: M PLALAB 09:09
PROVIDERS: ATTEND Specialist
DX: Z01.419 Encounter for gynecological examination (general) (routine) without abnormal findings (principal); A59.01 Trichomonal vulvovaginitis
CPT/HCPCS: 87624; G0123

== ENCOUNTER → 2024-12-17 | Outpatient (CLI) | payer MEDICARE, MEDICAID | LOC: M WHC 09:08 | PROVIDERS: ATTEND Specialist | DX: Z12.31 Encounter for screening mammogram for malignant neoplasm of breast (principal); R92.313 Mammographic fatty tissue density, bilateral breasts ==